=== PATIENT | male | born 1970 | race Caucasian/White ===

== ENCOUNTER 2018-08-23 10:30 | Emergency (ER) | payer MEDICAID, SELFPAY ==
[2018-08-23 10:35] VITALS: BP 131/76; PULSE 69; RESP 18; TEMP 36.3; O2SAT 94
--- NOTE | 2018-08-23 11:12 | ED.GENADUL_ITS ---
Discharge Plan Disposition Patient Disposition: HOME Condition: Stable Discharge Details Chief Complaint: Headache Clinical Impression: Sinusitis, acute Primary Care Provider: Kwabena Chaves ED Provider: Abhay Galvan Home Meds and New Rx's Prescriptions: New amoxicillin-pot clavulanate [Augmentin] 875-125 mg tablet 1 tab PO BID Qty: 14 RF: 0 Continue sertraline 50 MG tablet 50 mg PO DAILY Qty: 90 RF: 3 lisinopril 10 MG tablet 10 mg PO DAILY Qty: 90 RF: 3 valacyclovir 1,000 MG tablet 1,000 mg PO Q12H PRN Qty: 20 RF: 0 omeprazole 20 MG capsule,delayed release(DR/EC) 20 mg PO DAILY Qty: 90 RF: 4 Discharge Instructions Instructions: Sinusitis (ED) Additional Instructions: Feel free to return to the emergency department for any new or significant worsening of symptoms. Otherwise he may continue to take your Claritin-D along with [id number] pain medication as needed for discomfort. If not improving by the end of the antibiotics please follow-up with your primary care provider for reassessment. Referrals: Kwabena Chaves MD [Primary Care Provider] - (As needed for reassessment) Discharge Data Discharge Date/Time-TO BE ENTERED AT DEPARTURE: 08/23/18 11:20 Medical Decision Making Patient presenting to the emergency department with chief complaint of 3 weeks of sinus pressure and headaches. Patient states over the past 2 days he has started having subjective fever and chills at night. Patient does state that he wears a CPAP machine and does not clean it very often and is not sure if this is contributing to his symptoms. Patient has tried Claritin-D with minimal reduction of symptoms. Physical exam does show ethmoid and maxillary sinus tenderness and otherwise unremarkable examination. I am concerned for bacterial sinus infection due to 3 weeks of symptoms, fever chills, and minimal improvement. Patient placed upon Augmentin for 7 days and encouraged to follow- up with his primary care provider if not improving at the end of antibiotics. After discussion of diagnosis and plan of care patient is no further needs, questions, or concerns and states clear understanding to return to the emergency department for any worsening symptoms. HPI General Mode of arrival: ambulatory . Date/Time Provider Initiated Documentation: 08/23/18 10:42 . Limitations to Documentation: no limitations . Information obtained by: patient . History of Present Illness 48 year old M presents to the emergency department with the chief complaint of sinus pressure, described as moderate, with intensity rated at 7. Quality is described as aching, and is localized to the face. Patient started experiencing this week(s) (3) and it has been constant. No relieving factors improve symptom(s), No exacerbating factors reported . Patient did receive the following treatments prior to arrival, NSAID Related Data Home Medications Medication Instructions Recorded Confirmed sertraline 50 mg PO DAILY #90 tab-cap 10/14/17 08/23/18 lisinopril 10 mg PO DAILY #90 tab-cap 03/10/18 08/23/18 valacyclovir 1,000 mg PO Q12H PRN #20 tab-cap 04/06/18 08/23/18 omeprazole 20 mg PO DAILY #90 tab-cap 04/24/18 08/23/18 amoxicillin-pot clavulanate 1 tab PO BID #14 tab 08/23/18 [Augmentin] Previous Rx's Medication Instructions Recorded sertraline 50 mg PO DAILY #90 tab-cap 10/14/17 lisinopril 10 mg PO DAILY #90 tab-cap 03/10/18 valacyclovir 1,000 mg PO Q12H PRN #20 tab-cap 04/06/18 omeprazole 20 mg PO DAILY #90 tab-cap 04/24/18 amoxicillin-pot clavulanate 1 tab PO BID #14 tab 08/23/18 [Augmentin] Allergies Allergy/AdvReac Type Severity Reaction Status Date / Time No Known Allergies Allergy Unverified 01/27/18 09:11 General Stated Complaint: Headache RONALD: 4 Review of Systems Constitutional Denies body ache(s), Denies chills and Denies fever(s) Eyes Denies change in vision and Denies eye discharge ENT Denies otalgia, Reports nasal congestion, Denies neck pain, Reports sinus pain, Reports sinus pressure, Denies sore throat and Denies throat swelling Cardiovascular Denies chest pain and Denies dyspnea Respiratory Denies dyspnea Musculoskeletal Denies neck pain Integumentary/Breasts Denies rash Neurologic Denies confusion and Denies sensory deficit Psychiatric Denies confusion Allergic/Immunologic Denies throat swelling PFSH Family History Mother No problems noted. Father Personal history of malignant neoplasm PATERNAL AUNT Personal history of malignant neoplasm Medical History Anxiety Chewing tobacco use Depression Essential hypertension Family history of colon cancer in father Fatigue GERD (gastroesophageal reflux disease) Gout involving toe of right foot Headache Hiatal hernia History of colon polyps Hyperlipidemia REX (obstructive sleep apnea) Obesity Psoriasis Tick bite Social History Smoking/Tobacco Use Status: Current-Occasional Exam Const General: cooperative, no acute distress and not ill appearing Orientation: alert, awake and oriented x3 HENMT Head: normocephalic and atraumatic Ears: hearing grossly normal bilaterally and TM's normal bilaterally General nose exam: external nose normal, nares normal and septum normal Face and sinus: sinus tenderness ethmoid and maxillary Mouth: oral mucosae normal and moist mucous membranes Throat: posterior oropharynx normal Resp Effort & Inspection: normal respiratory effort, able to speak in complete sentences and no respiratory distress Cardio Rate: regular rate Rhythm: regular rhythm Skin General skin exam: no rashes or lesions noted Neuro General: alert, awake, oriented x3, moves all extremities and no focal motor deficits Sensory Exam: no sensory deficits noted Course Vital Signs Temperature 36.3 C L 08/23/18 10:35 Pulse 69 08/23/18 10:35 Respiratory Rate 18 08/23/18 10:35 Blood Pressure 131/76 08/23/18 10:35 Pulse Oximetry 94 L 08/23/18 10:35 Temperature 36.3 C L 08/23/18 10:35 Temperature Source Temporal Artery Scan 08/23/18 10:35 Pulse 69 08/23/18 10:35 Respiratory Rate 18 08/23/18 10:35 Respiratory Effort 08/23/18 10:37 Blood Pressure 131/76 08/23/18 10:35 Pulse Oximetry 94 L 08/23/18 10:35 Oxygen Delivery Method Room Air 08/23/18 10:35 Oxygen Flow Rate 0 08/23/18 10:35 Pain Level 4 08/23/18 10:35
== END 2018-08-23 11:20 | disposition home or self-care (01) ==
PROVIDERS: Emergency Provider Nurse Practitioner Family; PCP Family Medicine
DX: J01.90 Acute sinusitis, unspecified (principal); I10 Essential (primary) hypertension
CPT/HCPCS: 99283

== ENCOUNTER 2019-02-14 11:39 | Outpatient (CLI) | payer MEDICAID, SELFPAY ==
--- NOTE | 2019-02-14 10:30 | DI.RAD_ITS ---
SYMPTOMS/DIAGNOSIS: BURNING IN CHEST WITH DYSPNEA ON EXERTION, EXPOSURE TO WOOD DUST, BRONCHOSPASM, J98.01, R06.00 PA AND LATERAL CHEST: No evidence of acute cardiopulmonary disease. The heart is normal in size. The lungs are clear. The mediastinal structures and pleura appear intact. CONCLUSION: Normal chest.
== END 2019-02-14 11:59 ==
PROVIDERS: PCP Family Medicine; Visit Provider Family Medicine
DX: J98.01 Acute bronchospasm (principal); R06.00 Dyspnea, unspecified; R07.89 Other chest pain
CPT/HCPCS: 71046

== ENCOUNTER 2019-02-17 15:52 | Emergency (ER) | payer MEDICAID, SELFPAY ==
[2019-02-17 15:59] VITALS: BP 142/83; PULSE 83; RESP 16; TEMP 36.3; O2SAT 94
--- NOTE | 2019-02-17 16:16 | DI.RAD_ITS ---
SYMPTOM/DIAGNOSIS: COUGH,WHEEZE PA AND LATERAL CHEST: Comparison is made with 02/14/19. Heart size and pulmonary vasculature are within normal limits. There is linear atelectasis in the left lung base. No focal consolidating infiltrates, effusions or pneumothoraces are identified. The osseous structures appear stable. IMPRESSION: No acute pulmonary process.
--- NOTE | 2019-02-17 16:17 | W.ED.GENAD ---
Discharge Plan Disposition Patient Disposition: HOME Condition: Improving Discharge Details Chief Complaint: RespSymp Clinical Impression: Acute bronchitis with bronchospasm Primary Care Provider: Kwabena Chaves ED Provider: Luis Alegria Home Meds and New Rx's Prescriptions: New cefdinir 300 mg capsule 300 mg PO Q12H 10 Days Qty: 20 RF: 0 prednisone 50 mg tablet 50 mg PO DAILY Qty: 5 RF: 0 Continued indomethacin 50 mg capsule 50 mg PO TID Qty: 30 RF: 2 fluticasone propionate 50 mcg/actuation spray,suspension 2 spray PJ DAILY Qty: 9.9 RF: 1 Aerochamber MV spacer .ROUTE .MEDSUPPLY Qty: 1 RF: 0 albuterol sulfate [Ventolin HFA] 90 mcg/actuation HFA aerosol inhaler 2 puff IH Q4H PRN (Reason: shortness of breath or wheezing) Qty: 8.5 RF: 2 omeprazole 40 mg capsule,delayed release(DR/EC) 40 mg PO BID Qty: 60 RF: 0 lisinopril 10 MG tablet 10 mg PO DAILY Qty: 90 RF: 3 sertraline 50 mg tablet 50 mg PO DAILY Qty: 90 RF: 3 Discharge Instructions Instructions: Acute Bronchitis (ED) Additional Instructions: Stop the amoxicillin you have been taking. Begin antibiotics as prescribed and take the entire course. Take prednisone as prescribed. May continue to use your inhaler as needed every 2-4 hours time. Please make a follow-up appointment with Dr Pereira in clinic for recheck in the next 7-10 days time. Return to the emergency department for worsening difficulty breathing or any other acute concern. Medical Decision Making 48-year-old male presents emerged from today from home with his . He states that he has had intermittent upper respiratory illnesses 3 times this winter. Now is days of her recurrent cough with congestion, production of sputum, wheezing at home this morning. He arrives afebrile, well-appearing, in no acute distress with normal oxygenation on room air and speaking in full sentences. His exam does reveal right base and expiratory wheeze. Differential diagnosis includes bronchitis with bronchospasm, pneumonia. Screening laboratories obtained, patient given a DuoNeb updraft and systemic steroids, referred for chest x-ray. Screening laboratories unremarkable. Chest x-ray with platelike atelectasis left base. Patient improving with inhaled beta agonist. Will treat for worsening bronchitis, with question sinusitis, with a course of oral abx. Patient will benefit from steroid burst and ongoing beta agonist treatment for bronchospasm. Will ask him to followup with Dr Pereira for recheck. Lab Data Lab results reviewed: Yes I reviewed the patient's lab results. Laboratory Results - last 24 hr 02/17/19 02/17/19 16:20 16:20 WBC 5.83 RBC 4.72 Hgb 14.6 Hct 43.6 MCV 92.4 MCH 30.9 MCHC 33.5 RDW 13.2 Plt Count 246 MPV 8.3 Immature Gran % 0.3 Neutrophils % 39.1 Lymphocytes % 38.8 Monocytes % 15.8 Eosinophils % 5.7 Basophils % 0.3 Absolute Neutrophils 2.28 Absolute Lymphocytes 2.26 Absolute Monocytes 0.92 H Absolute Eosinophils 0.33 Absolute Basophils 0.02 Sodium 139 Potassium 4.4 Chloride 103 Carbon Dioxide 26.8 Anion Gap 9.2 BUN 17 Creatinine 0.98 Estimated GFR/1.73 m2 >= 60.00 Glucose 93 Calcium 9.0 HPI General Mode of arrival: ambulatory. Date/Time Provider Initiated Documentation: 02/17/19 15:58. Limitations to Documentation: no limitations. Information obtained by: patient. History of Present Illness 48 year old M presents to the emergency department with the chief complaint of Cough and congestion, recurrent with wheezing this am, described as moderate, Quality is described as dull and constant, and is localized to the chest. Patient reports no radiation. Patient started experiencing this day(s) and it has been constant. No relieving factors improve symptom(s), No exacerbating factors reported . Patient notes cough, fever/chills and other (Production of sputum, green colored and wheezing this AM). Patient did receive the following treatments prior to arrival, other (States he has been taking amoxicillin 500 mg twice daily for 3 DAYS) Related Data Home Medications Medication Instructions Recorded Confirmed lisinopril 10 mg PO DAILY #90 tab-cap 03/10/18 02/17/19 indomethacin 50 mg capsule 50 mg PO TID #30 cap 10/13/18 02/17/19 sertraline 50 mg tablet 50 mg PO DAILY #90 tab-cap 11/13/18 02/17/19 fluticasone propionate 50 2 spray PJ DAILY #9.9 gm 01/26/19 02/17/19 mcg/actuation nasal spray,suspension albuterol sulfate HFA 90 2 puff IH Q4H PRN #8.5 gm 02/14/19 02/17/19 mcg/actuation aerosol inhaler inhalational spacing device #1 each 02/14/19 02/14/19 omeprazole 40 mg capsule,delayed 40 mg PO BID #60 cap 02/14/19 02/17/19 release cefdinir 300 mg PO Q12H 10 Days #20 cap 02/17/19 prednisone 50 mg PO DAILY #5 tab 02/17/19 Previous Rx's Medication Instructions Recorded lisinopril 10 mg PO DAILY #90 tab-cap 03/10/18 indomethacin 50 mg capsule 50 mg PO TID #30 cap 10/13/18 sertraline 50 mg tablet 50 mg PO DAILY #90 tab-cap 11/13/18 fluticasone propionate 50 2 spray PJ DAILY #9.9 gm 01/26/19 mcg/actuation nasal spray,suspension albuterol sulfate HFA 90 2 puff IH Q4H PRN #8.5 gm 02/14/19 mcg/actuation aerosol inhaler inhalational spacing device #1 each 02/14/19 omeprazole 40 mg capsule,delayed 40 mg PO BID #60 cap 02/14/19 release cefdinir 300 mg PO Q12H 10 Days #20 cap 02/17/19 prednisone 50 mg PO DAILY #5 tab 02/17/19 Allergies Allergy/AdvReac Type Severity Reaction Status Date / Time No Known Allergies Allergy Unverified 02/17/19 16:04 General Stated Complaint: RespSymp RONLAD: 3 Review of Systems Review of Systems 6 systems reviewed and otherwise negative. Patient denies chest pain, no recent travel, no known sick CONTACTS [facility] Medical History Anxiety Chewing tobacco use Depression Essential hypertension Family history of colon cancer in father Fatigue GERD (gastroesophageal reflux disease) Gout involving toe of right foot Headache Hiatal hernia History of colon polyps Hyperlipidemia REX (obstructive sleep apnea) Obesity Psoriasis Tick bite Family History Mother No problems noted. Father Personal history of malignant neoplasm PATERNAL AUNT Personal history of malignant neoplasm Social History Smoking/Tobacco Use Status: Never Drug use: Never Do you feel safe in your relationship?: Yes Exam Narrative Exam Narrative: GEN: awake, alert, oriented 3. Pleasant, well groomed, interactive. HEAD: Normocephalic, atraumatic ENT: Mucous membranes moist, oropharynx unremarkable, External ear exam unremarkable EYES: PERRL, EOMI NECK: Full ROM, no VALERIA, no menigismus CHEST/RESP: Nontender, clear to auscultation bilateral, discrete end expiratory wheeze at right base CARDIOVASCULAR: RRR, no murmur, rub marj. 2+ Rad pulse bilateral ABDOMEN: Soft, nontender, no mass. +Bowel sounds EXT: Full ROM, no edema, no rash Neuro: Grossly normal neurologic exam, conversant, interactive. Psych: Speech fluent, thoughts congruent, affect normal Course Vital Signs Temperature 36.3 C L 02/17/19 15:59 Pulse 83 02/17/19 15:59 Respiratory Rate 16 02/17/19 15:59 Blood Pressure 142/83 H 02/17/19 15:59 Pulse Oximetry 94 L 02/17/19 15:59 Temperature 36.3 C L 02/17/19 15:59 Temperature Source Skin 02/17/19 15:59 Pulse 83 02/17/19 15:59 Respiratory Rate 16 02/17/19 15:59 Respiratory Effort Non-Labored 02/17/19 16:06 Respiratory Depth Normal 02/17/19 16:06 Blood Pressure 142/83 H 02/17/19 15:59 Blood Pressure Position Sitting 02/17/19 15:59 Pulse Oximetry 94 L 02/17/19 15:59 Oxygen Delivery Method Room Air 02/17/19 15:59 Oxygen Flow Rate 0 02/17/19 15:59 Pain Level 5 02/17/19 15:59
[2019-02-17 16:26] VITALS: RESP 2; RESP 7; O2SAT 94
[2019-02-17] MEDS: Albuterol/Ipratropium 3 ML UPD VIAL UPD (16:26)
[2019-02-17] MEDS: predniSONE 20 MG TAB 60 MG PO (16:26)
[2019-02-17 16:29] LABS: Abs Immature Grans 0.02 k/cumm (0.0-0.09); Absolute Basophil Count 0.02 k/cumm (0.0-0.2); Absolute Eosinophil Count 0.33 k/cumm (0.0-0.7); Absolute Lymphocyte Count 2.26 k/cumm (1.2-3.4); Absolute Monocyte Count 0.92 k/cumm (0.11-0.7); Absolute Neutrophil Count 2.28 k/cumm (1.2-6.7); Basophils % 0.3; Eosinophils % 5.7; HCT 43.6 % (40.0-50.0); HGB 14.6 g/dL (13.5-17.5); Immature Grans % 0.3; Lymphocytes % 38.8; Mean Corp. HGB Concentration 33.5 g/dL (32.0-36.0); Mean Corpuscular Hemoglobin 30.9 pg (27.0-33.0); Mean Corpuscular Volume 92.4 fL (80-95); Mean Platelet Volume 8.3 fL (8.0-11.0); Monocytes % 15.8; Neutrophils % 39.1; Platelet Count 246 x1000/uL (130-400); RBC 4.72 m/cumm (4.50-6.00); RBC Distribution Width 13.2 % (11.8-14.1); White Blood Cell Count 5.83 k/cumm (4.4-10.8)
[2019-02-17 16:40] LABS: Anion Gap 9.2 mmol/L (3-11); BUN 17 mg/dL (7-18); CO2 26.8 mmol/L (21.0-32.0); CREATININE 0.98 mg/dL (0.70-1.30); Chloride 103 mmol/L (98-107); Glucose 93 mg/dL (70-100); Potassium 4.4 mmol/L (3.5-5.1); Sodium 139 mmol/L (136-145)
[2019-02-17 16:56] VITALS: RESP 1
--- NOTE | 2019-02-17 17:02 | DI.VRAD_ITS ---
EXAM: XR Chest, 2 Views EXAM DATE/TIME: 02/17/2019 4:17 PM CLINICAL HISTORY: 48 years old, male; Signs and symptoms; Other: Cough and wheeze TECHNIQUE: Imaging protocol: XR of the chest, 2 views. COMPARISON: CR XR CHEST 2V PA LATERAL 02/14/2019 10:55 AM FINDINGS: Lungs: Mild platelike atelectasis in the left lung base. Lungs are otherwise clear. Pleural space: Unremarkable. No pleural effusion. No pneumothorax. Heart/Mediastinum: Unremarkable. No cardiomegaly. Bones/joints: No acute skeletal abnormality. IMPRESSION: Negative for acute thoracic pathology. Dictated and Authenticated by: Mariusz Mcmanus MD. Ordering:EL Smith MD
[2019-02-17] MEDS: Cefdinir 300 MG CAP PO (17:20)
== END 2019-02-17 17:22 | disposition home or self-care (01) ==
PROVIDERS: Emergency Provider Emergency Medicine; PCP Family Medicine
DX: J20.9 Acute bronchitis, unspecified (principal); I10 Essential (primary) hypertension
CPT/HCPCS: 36415; 80048; 94640; 99284; 71046; 85025; J7512; J7620

== ENCOUNTER 2019-02-18 21:51 | Emergency (ER) | payer MEDICAID, SELFPAY ==
[2019-02-18 21:59] VITALS: BP 167/75; PULSE 89; RESP 18; TEMP 36.9; O2SAT 92
[2019-02-18 22:06] VITALS: RESP 18
--- NOTE | 2019-02-18 22:07 | W.ED.GENAD ---
Discharge Plan Disposition Patient Disposition: HOME Condition: Good Discharge Details Chief Complaint: GenMedical Clinical Impression: Adverse effects of medication Primary Care Provider: Kwabena Chaves ED Provider: Jose Rivera Home Meds and New Rx's Prescriptions: No Action indomethacin 50 mg capsule 50 mg PO TID Qty: 30 RF: 2 fluticasone propionate 50 mcg/actuation spray,suspension 2 spray PJ DAILY Qty: 9.9 RF: 1 Aerochamber MV spacer .ROUTE .MEDSUPPLY Qty: 1 RF: 0 albuterol sulfate [Ventolin HFA] 90 mcg/actuation HFA aerosol inhaler 2 puff IH Q4H PRN (Reason: shortness of breath or wheezing) Qty: 8.5 RF: 2 omeprazole 40 mg capsule,delayed release(DR/EC) 40 mg PO BID Qty: 60 RF: 0 lisinopril 10 MG tablet 10 mg PO DAILY Qty: 90 RF: 3 sertraline 50 mg tablet 50 mg PO DAILY Qty: 90 RF: 3 cefdinir 300 mg capsule 300 mg PO Q12H 10 Days Qty: 20 RF: 0 prednisone 50 mg tablet 50 mg PO DAILY Qty: 5 RF: 0 Discharge Instructions Additional Instructions: Please either stop taking the steroid completely, or cut the pills in half and take a half a pill daily for the next 7 days. Please take the antibiotic as directed. If you notice any worsening of your symptoms, or any new symptoms such as vomiting, diarrhea, fever, chills, shortness of breath, chest pain, numbness, weakness, or fainting , please return immediately to the emergency department for reevaluation. Please follow up with your primary care provider as soon as possible for reassessment and reevaluation. As always, it was a pleasure participating in your medical care today. Referrals: Kwabena Chaves MD [Primary Care Provider] - Medical Decision Making This is a 48-year-old male who presents today for evaluation of flushing in his face, occasional palpitations, feeling slightly hot and anxious. Patient was given an antibiotic and prednisone yesterday when he was here, he is taking his second dose of steroids today. Physical exam demonstrates no evidence of angioedema, allergic reaction with no signs of rash, hives, or swelling. No significant flushing of his face, vital signs are notably encouraging. I do feel that the patient signs and symptoms are clinically consistent with an adverse reaction secondary to the steroid with a classic flushing, mild palpitation, feelings of anxiousness. No signs of anaphylaxis, no evidence of abnormality for the remainder of his exam. Currently he feels asymptomatic. I discussed with him stopping the steroid, versus continuing it at half dose. I will leave it up to him based on his symptoms. He will continue the antibiotic. Otherwise patient is doing well and looks well. I have extensively reviewed the treatment plan and discharge instructions with the patient. I have addressed all patient concerns at this time. The patient was made aware of what symptoms to monitor for that would warrant a return to the emergency department. Discussed the plan with the patient, they demonstrate verbal understanding and agreement with our assessment and plan at this time. HPI General Date/Time Provider Initiated Documentation: 02/18/19 21:52. HPI Narrative: This is a pleasant 48-year-old male with a past medical history of reactive airway disease who was recently here yesterday and prescribed steroids and Ceftin ear for suspected community-acquired URI/pneumonia. Patient had been taking medication as directed, however today he noticed flushing in his face, feelings of jitteriness and occasional palpitations. He states that he is taking these medications before but has not had symptoms like this in the past. Patient denies any chest pain, shortness of breath, tearing sensation in his chest, swelling in his mouth, difficulty drinking, syncope, or lightheadedness. No other complaints at this time. No other additional modifying factors. Related Data Home Medications Medication Instructions Recorded Confirmed lisinopril 10 mg PO DAILY #90 tab-cap 03/10/18 02/17/19 indomethacin 50 mg capsule 50 mg PO TID #30 cap 10/13/18 02/17/19 sertraline 50 mg tablet 50 mg PO DAILY #90 tab-cap 11/13/18 02/17/19 fluticasone propionate 50 2 spray PJ DAILY #9.9 gm 01/26/19 02/17/19 mcg/actuation nasal spray,suspension albuterol sulfate HFA 90 2 puff IH Q4H PRN #8.5 gm 02/14/19 02/17/19 mcg/actuation aerosol inhaler inhalational spacing device #1 each 02/14/19 02/14/19 omeprazole 40 mg capsule,delayed 40 mg PO BID #60 cap 02/14/19 02/17/19 release cefdinir 300 mg PO Q12H 10 Days #20 cap 02/17/19 02/18/19 prednisone 50 mg PO DAILY #5 tab 02/17/19 02/18/19 Previous Rx's Medication Instructions Recorded lisinopril 10 mg PO DAILY #90 tab-cap 03/10/18 indomethacin 50 mg capsule 50 mg PO TID #30 cap 10/13/18 sertraline 50 mg tablet 50 mg PO DAILY #90 tab-cap 11/13/18 fluticasone propionate 50 2 spray PJ DAILY #9.9 gm 01/26/19 mcg/actuation nasal spray,suspension albuterol sulfate HFA 90 2 puff IH Q4H PRN #8.5 gm 02/14/19 mcg/actuation aerosol inhaler inhalational spacing device #1 each 02/14/19 omeprazole 40 mg capsule,delayed 40 mg PO BID #60 cap 02/14/19 release cefdinir 300 mg PO Q12H 10 Days #20 cap 02/17/19 prednisone 50 mg PO DAILY #5 tab 02/17/19 Allergies Allergy/AdvReac Type Severity Reaction Status Date / Time No Known Allergies Allergy Unverified 02/18/19 22:04 General Stated Complaint: GenMedical RONALD: 4 Review of Systems Review of Systems All systems reviewed & are unremarkable except as noted in HPI and below PFSH Social History Smoking/Tobacco Use Status: Never Drug use: Never Do you feel safe in your relationship?: Yes Exam Narrative Exam Narrative: 1.Const: Well-nourished, Well-developed, appearing stated age 2.Eyes: PERRL, no conjunctival injection, and symmetrical lids. 3.ENT: Atraumatic external nose and ears. Moist MM. Neck: Symmetric, trachea midline, No thyromegaly. 4.CVS: +S1/S2, No murmurs or gallops. Peripheral pulses 2+ and equal in all extremities. Brisk capillary refill in all extremities. 5.RESP: Unlabored respiratory effort. No wheezes throughout, no significant crackles or rhonchi. 6.GI: Soft, Nontender/Nondistended, No hepatosplenomegaly. No guarding or rebound. 7.MSK: Normocephalic/Atraumatic, Extremities w/o deformity or ttp No cyanosis or clubbing, Normal movement of all extremities 8.Skin: Warm, Dry. No rashes or lesions. 9.Neuro: manager credit collections II-XII grossly intact. Sensation grossly intact, no focal neurologic deficits. 10.Psych: (AAO) x3. Appropriate mood and affect Course Vital Signs Temperature 36.9 C 02/18/19 21:59 Pulse 89 02/18/19 21:59 Respiratory Rate 18 02/18/19 21:59 Blood Pressure 167/75 H 02/18/19 21:59 Pulse Oximetry 92 L 02/18/19 21:59 Temperature 36.9 C 02/18/19 21:59 Temperature Source Skin 02/18/19 21:59 Pulse 89 02/18/19 21:59 Respiratory Rate 18 02/18/19 21:59 Blood Pressure 167/75 H 02/18/19 21:59 Blood Pressure Position Sitting 02/18/19 21:59 Pulse Oximetry 92 L 02/18/19 21:59 Oxygen Delivery Method Room Air 02/18/19 21:59 Oxygen Flow Rate 0 02/18/19 21:59
== END 2019-02-18 22:13 | disposition home or self-care (01) ==
PROVIDERS: Emergency Provider Student in an Organized Health Care Education/Training Program; PCP Family Medicine
DX: T38.0X5A Adverse effect of glucocorticoids and synthetic analogues, initial encounter (principal)
CPT/HCPCS: 99283

== ENCOUNTER 2019-06-01 13:55 | Emergency (ER) | payer MEDICAID, SELFPAY ==
[2019-06-01 14:01] VITALS: BP 117/63; PULSE 86; RESP 16; TEMP 36.9; O2SAT 95
--- NOTE | 2019-06-01 14:24 | ED.GENADUL_ITS ---
Discharge Plan Disposition Patient Disposition: HOME Condition: Stable Discharge Details Chief Complaint: Sorethroat Clinical Impression: Sore throat Primary Care Provider: Kwabena Chaves ED Provider: Nghia Cortez Home Meds and New Rx's Prescriptions: No Action fluticasone propionate 50 mcg/actuation spray,suspension 2 spray PJ DAILY Qty: 9.9 RF: 1 (DME) Aerochamber MV spacer See Dose Instructions .ROUTE .MEDSUPPLY Qty: 1 RF: 0 albuterol sulfate [Ventolin HFA] 90 mcg/actuation HFA aerosol inhaler 2 puff IH Q4H PRN (Reason: shortness of breath or wheezing) Qty: 8.5 RF: 2 omeprazole 40 mg capsule,delayed release(DR/EC) 20 mg PO BID Qty: 60 RF: 0 sertraline 50 mg tablet 50 mg PO DAILY Qty: 90 RF: 3 lisinopril 10 mg tablet 10 mg PO DAILY Qty: 90 RF: 3 Discharge Instructions Additional Instructions: Your seen feeling of sore throat today with concern for swelling of your uvula. On exam today there is no evidence of infection swelling or airway obstruction. However the symptoms have been improving over the past week raising some concern for resolving angioedema which is a swelling of your airway tissues secondary to your lisinopril. I Recommend that you stop taking your lisinopril & follow-up with your primary care doctor in the next 3 days for consideration of an alternative blood pressure medication. Please return to the emergency departme nt immediately for difficulty swallowing difficulty breathing swelling of your lips tongue or other part of your upper airway. Referrals: Kwabena Chaves MD [Primary Care Provider] - (Please see your primary care provider for repeat exam and consideration of an alternative blood pressure medication.) Medical Decision Making 49-year-old male with sensation of enlarged uvula when swallowing difficulty swallowing no inability to tolerate p.o. no shortness of breath no voice change no signs of airway edema or respiratory compromise. Due to the delayed presentation some consideration for resolving angioedema. Will have patient discontinue lisinopril discussed strict return to emergency department precautions including shortness of breath change in voice stridor facial swelling tongue swelling or other airway concern. Patient to follow-up with primary care doctor for consideration of alternate blood pressure medication and follow with ENT if symptoms are not resolving completely patient also counseled to tobacco use is dangerous and he should consider cessation patient not interested in cessation today. HPI 49-year-old male past medical history of hypertension GERD and depression presents with 1 week of gradually improving sore throat characterized as a swelling around his uvula on his own personal exam and some discomfort with swallowing. No fever chills shortness of breath chest pain loss of consciousness change in voice or change in breathing pattern no reported difficulty sleeping or snoring. Symptoms occurred a week ago gradually were worse with swallowing and is slowly been resolving. General Date/Time Provider Initiated Documentation: 06/01/19 14:10 . Related Data Home Medications Medication Instructions Recorded Confirmed sertraline 50 mg tablet 50 mg PO DAILY #90 tab-cap 11/13/18 06/01/19 fluticasone propionate 50 2 spray PJ DAILY #9.9 gm 01/26/19 06/01/19 mcg/actuation nasal spray,suspension albuterol sulfate 90 mcg/actuation 2 puff IH Q4H PRN #8.5 gm 02/14/19 06/01/19 aerosol inhaler inhalational spacing device #1 each 02/14/19 06/01/19 omeprazole 40 mg capsule,delayed 20 mg PO BID #60 cap 02/14/19 06/01/19 release lisinopril 10 mg tablet 10 mg PO DAILY #90 tab-cap 04/10/19 06/01/19 Previous Rx's Medication Instructions Recorded sertraline 50 mg tablet 50 mg PO DAILY #90 tab-cap 11/13/18 fluticasone propionate 50 2 spray PJ DAILY #9.9 gm 01/26/19 mcg/actuation nasal spray,suspension albuterol sulfate 90 mcg/actuation 2 puff IH Q4H PRN #8.5 gm 02/14/19 aerosol inhaler inhalational spacing device #1 each 02/14/19 omeprazole 40 mg capsule,delayed 20 mg PO BID #60 cap 02/14/19 release lisinopril 10 mg tablet 10 mg PO DAILY #90 tab-cap 04/10/19 Allergies Allergy/AdvReac Type Severity Reaction Status Date / Time No Known Allergies Allergy Unverified 06/01/19 14:05 General Stated Complaint: Sorethroat RONALD: 4 Review of Systems Review of Systems All systems reviewed & are unremarkable except as noted in HPI and below PFSH Social History Smoking/Tobacco Use Status: Never Drug use: Never Do you feel safe at home: Yes Do you feel safe in your relationship?: Yes Exam Narrative Exam Narrative: Pulse oximetry reviewed by me and is normal Constitutional: he is in no acute distress. he is well appearing. he oriented to person, place, and time. Eyes: his conjunctivae are normal. Pupils are equal, round, and reactive to light. No scleral icterus. his extraocular muscles are intact pharynx normal nomral uvula, no erthema no exudates no asymmetry. no stridor. no tachypnea or resp distress. normal voice. no foul breath. no lesions or sores. Ears/Nose/Mouth/Throat: his mucus membranes are moist. Musculoskeletal: his neck is supple. he has normal range of motion in all extremities. Cardiovascular: Normal rate and rhythm. No lower extremity edema Respiratory: his effort is normal . he exhibits no stridor or respiratory distress. LCTA GastrointestinaI: abdomen soft, +BS, nontender, -rebound, -guarding. Neurological: he is alert and oriented to person, place, and time. he has normal strength, no tremor. Skin: Skin is warm and dry. he is not diaphoretic. Distal perfusion in tact, warm extremities, cap refill < 2 seconds. Hem/Lymph/Imm: No cervical LAD, no goiter, no conjunctival pallor Psych: he has a normal mood and affect. his behavior is normal Triage and nurse notes reviewed. Course Vital Signs Temperature 36.9 C 06/01/19 14:01 Pulse 86 06/01/19 14:01 Respiratory Rate 16 06/01/19 14:01 Blood Pressure 117/63 06/01/19 14:01 Pulse Oximetry 95 06/01/19 14:01 Temperature 36.9 C 06/01/19 14:01 Temperature Source Skin 06/01/19 14:01 Pulse 86 06/01/19 14:01 Respiratory Rate 16 06/01/19 14:01 Respiratory Effort Non-Labored 06/01/19 14:03 Blood Pressure 117/63 06/01/19 14:01 Blood Pressure Position Sitting 06/01/19 14:01 Pulse Oximetry 95 06/01/19 14:01 Oxygen Delivery Method Room Air 06/01/19 14:01 Oxygen Flow Rate 0 06/01/19 14:01 Pain Level 0 06/01/19 14:01
== END 2019-06-01 14:32 | disposition home or self-care (01) ==
PROVIDERS: Emergency Provider Emergency Medicine; PCP Family Medicine
DX: J02.9 Acute pharyngitis, unspecified (principal); I10 Essential (primary) hypertension
CPT/HCPCS: 99282

== ENCOUNTER 2019-06-07 21:35 | Emergency (ER) | payer MEDICAID, SELFPAY ==
[2019-06-07 21:40] VITALS: BP 131/78; PULSE 70; RESP 20; TEMP 36.6; O2SAT 96
[2019-06-07] MEDS: Tetracaine 0.5% 4 ML BTL (21:46)
--- NOTE | 2019-06-07 21:52 | ED.GENADUL_ITS ---
Discharge Plan Disposition Patient Disposition: HOME Condition: Good Discharge Details Chief Complaint: EyeProblem Clinical Impression: Abrasion, corneal, Eye foreign body Primary Care Provider: Kwabena Chaves ED Provider: Haydee Kingston Home Meds and New Rx's Prescriptions: Continued fluticasone propionate 50 mcg/actuation spray,suspension 2 spray PJ DAILY Qty: 9.9 RF: 1 (DME) Aerochamber MV spacer See Dose Instructions .ROUTE .MEDSUPPLY Qty: 1 RF: 0 albuterol sulfate [Ventolin HFA] 90 mcg/actuation HFA aerosol inhaler 2 puff IH Q4H PRN (Reason: shortness of breath or wheezing) Qty: 8.5 RF: 2 omeprazole 40 mg capsule,delayed release(DR/EC) 20 mg PO BID Qty: 60 RF: 0 sertraline 50 mg tablet 50 mg PO DAILY Qty: 90 RF: 3 lisinopril 10 mg tablet 10 mg PO DAILY Qty: 90 RF: 3 Discharge Instructions Instructions: Corneal Abrasion (ED), Eye Foreign Body (ED) Additional Instructions: Foreign body was removed today. You need to treat with erythromycin ointment every 6 hours for the next 5 days. Please call [facility] tomorrow to schedule follow up appointment. If you develop fevers/chills, increased pain, discharge, visual changes or other new/worsening symptoms please seek care urgently once again. Referrals: Kwabena Cahves MD [Primary Care Provider] - Medical Decision Making Patient is a 49 year old male with c/c of FB to left eye. Reports he is UTD on tetanus. Was working with wood, patient is a shabazz, when developed FB sensation. States vision has been slightly blurry. No CHANG, no fevers/chills. On exam cornea is injected, no discharge. Eyelids were everted, no FB noted. Tetracaine improved symptoms. Flouroscein used, small abrasion noted at 3 o'clock position. Small FB noted in upper lid, removed with qtip. Patient will be treated with erythromycin ointment. This was given here, first dose adminstered by nursing staff. He will f/u with [facility] tomorrow. Discussed new/worsneing symptoms that should prompt her to be evaluated once again. all questions and concerns were addressed, he is in agreement iwth this plan. HPI General Mode of arrival: ambulatory . Date/Time Provider Initiated Documentation: 06/07/19 21:52 . Limitations to Documentation: no limitations . Information obtained by: patient and RN notes reviewed . History of Present Illness 49 year old M presents to the emergency department with the chief complaint of FB sensation left eye, described as moderate, Quality is described as burning (scratching), and is localized to the eyes. Patient reports no radiation. Patient started experiencing this hour(s) (10) and it has been constant. No relieving factors improve symptom(s), No exacerbating factors reported . Patient notes no other symptoms.; denies diaphoresis, fever/chills, headaches, nausea/vomiting and rash. Patient did receive the following treatments prior to arrival, none Related Data Home Medications Medication Instructions Recorded Confirmed sertraline 50 mg tablet 50 mg PO DAILY #90 tab-cap 11/13/18 06/01/19 fluticasone propionate 50 2 spray PJ DAILY #9.9 gm 01/26/19 06/01/19 mcg/actuation nasal spray,suspension albuterol sulfate 90 mcg/actuation 2 puff IH Q4H PRN #8.5 gm 02/14/19 06/01/19 aerosol inhaler inhalational spacing device #1 each 02/14/19 06/01/19 omeprazole 40 mg capsule,delayed 20 mg PO BID #60 cap 02/14/19 06/01/19 release lisinopril 10 mg tablet 10 mg PO DAILY #90 tab-cap 04/10/19 06/01/19 Previous Rx's Medication Instructions Recorded sertraline 50 mg tablet 50 mg PO DAILY #90 tab-cap 11/13/18 fluticasone propionate 50 2 spray PJ DAILY #9.9 gm 01/26/19 mcg/actuation nasal spray,suspension albuterol sulfate 90 mcg/actuation 2 puff IH Q4H PRN #8.5 gm 02/14/19 aerosol inhaler inhalational spacing device #1 each 02/14/19 omeprazole 40 mg capsule,delayed 20 mg PO BID #60 cap 02/14/19 release lisinopril 10 mg tablet 10 mg PO DAILY #90 tab-cap 04/10/19 Allergies Allergy/AdvReac Type Severity Reaction Status Date / Time No Known Allergies Allergy Unverified 06/01/19 14:05 General Stated Complaint: EyeProblem RONALD: 3 Review of Systems Constitutional Reports as per HPI, Denies chills, Denies fatigue, Denies fever(s) and Denies headache(s) Eyes Reports as per HPI ENT Denies headache(s) Cardiovascular Reports as per HPI, Denies chest pain and Denies lightheadedness Respiratory Denies cough Integumentary/Breasts Reports as per HPI, Denies rash, Denies skin pain and Denies skin swelling Neurologic Denies headache(s) and Denies radicular pain Endocrine Denies fatigue [facility] Medical History Anxiety Chewing tobacco use Depression Essential hypertension Family history of colon cancer in father Fatigue GERD (gastroesophageal reflux disease) Gout involving toe of right foot Headache Hiatal hernia History of colon polyps Hyperlipidemia Obesity REX (obstructive sleep apnea) Psoriasis Tick bite Social History Smoking/Tobacco Use Status: Never Alcohol Intake: never Drug use: Never Substance use type: does not use Do you feel safe at home: Yes Do you feel safe in your relationship?: Yes Exam Const General: cooperative, healthy appearing, comfortable, no acute distress, well developed and well groomed Nutritional Appearance: average body habitus and well nourished Orientation: alert, awake and oriented x3 HENMT Head: normal to inspection, normocephalic and atraumatic Ears: hearing grossly normal bilaterally and external ears normal General nose exam: external nose normal and nares normal Face and sinus: normal facial exam and face symmetric Mouth: oral mucosae normal, lip normal and moist mucous membranes Eyes Visual Fink: normal visual fink by confrontation Alignment and Position: alignment normal and position normal Periorbital: periorbital findings normal Eyelids: eyelid abnormality left upper eyelid foreign body (small FB noted with flouroscein uptake); without lacerations and without swelling Conjunctivae: conjunctivae normal Sclera: sclerae normal Cornea: corneas abnormal on the left fluorescein used and abrasion linear and at the following clock position (3) and fluorescein used Pupils: PERRL, normal by confrontation and accommodation normal EOM: EOM intact bilaterally Direct ophthalmoscopy: normal light reflex Resp Effort & Inspection: normal respiratory effort, able to speak in complete sentences and no respiratory distress Skin General skin exam: no rashes or lesions noted Neuro General: alert, awake and oriented x3 Cranial Nerves: CN's II-XI intact bilaterally Cognition: normal cognition Speech: speech normal Gait: normal gait Psych Appearance: grossly normal and well kempt Mental Status: mental status grossly normal Speech and Movement: speech and movement normal Course Vital Signs Temperature 36.6 C 06/07/19 21:40 Pulse 70 06/07/19 21:40 Respiratory Rate 20 06/07/19 21:40 Blood Pressure 131/78 06/07/19 21:40 Pulse Oximetry 96 06/07/19 21:40 Temperature 36.6 C 06/07/19 21:40 Temperature Source Temporal Artery Scan 06/07/19 21:40 Pulse 70 06/07/19 21:40 Respiratory Rate 20 06/07/19 21:40 Respiratory Effort 06/07/19 21:46 Blood Pressure 131/78 06/07/19 21:40 Blood Pressure Position Sitting 06/07/19 21:40 Pulse Oximetry 96 06/07/19 21:40 Oxygen Delivery Method Room Air 06/07/19 21:40 Oxygen Flow Rate 0 06/07/19 21:40
[2019-06-07] MEDS: Erythromycin Ophth Oint 3.5 GM TUBE OS (22:44)
[2019-06-07] MEDS: Fluorescein STRIPS 100/BOX 1 MG (22:46)
== END 2019-06-07 22:50 | disposition home or self-care (01) ==
PROVIDERS: Emergency Provider Physician Assistant; PCP Family Medicine
DX: S05.02XA Injury of conjunctiva and corneal abrasion without foreign body, left eye, initial encounter (principal); S00.252A Superficial foreign body of left eyelid and periocular area, initial encounter; X58.XXXA Exposure to other specified factors, initial encounter
CPT/HCPCS: 99283

== ENCOUNTER 2019-06-08 08:29 | Outpatient (CLI) | payer MEDICAID, SELFPAY ==
[2019-06-08 11:02] LABS: Abs Immature Grans 0.02 k/cumm (0.0-0.09); Absolute Basophil Count 0.02 k/cumm (0.0-0.2); Absolute Eosinophil Count 0.21 k/cumm (0.0-0.7); Absolute Lymphocyte Count 2.37 k/cumm (1.2-3.4); Absolute Monocyte Count 0.63 k/cumm (0.11-0.7); Absolute Neutrophil Count 3.26 k/cumm (1.2-6.7); Basophils % 0.3; Eosinophils % 3.2; HCT 41.3 % (40.0-50.0); HGB 13.7 g/dL (13.5-17.5); Immature Grans % 0.3; Lymphocytes % 36.4; Mean Corp. HGB Concentration 33.2 g/dL (32.0-36.0); Mean Corpuscular Hemoglobin 31.6 pg (27.0-33.0); Mean Corpuscular Volume 95.4 fL (80-95); Mean Platelet Volume 8.7 fL (8.0-11.0); Monocytes % 9.7; Neutrophils % 50.1; Platelet Count 294 x1000/uL (130-400); RBC 4.33 m/cumm (4.50-6.00); White Blood Cell Count 6.51 k/cumm (4.4-10.8)
[2019-06-08 11:27] LABS: ALT 79 U/L (12-78); AST 34 U/L (15-37); Albumin 3.5 g/dL (3.4-5.0); Alkaline Phosphatase 92 U/L (46-116); Anion Gap 9.2 mmol/L (3-11); BUN 19 mg/dL (7-18); Bilirubin, Total 0.3 mg/dL (0.2-1.0); CO2 25.8 mmol/L (21.0-32.0); CREATININE 0.88 mg/dL (0.70-1.30); Calcium 8.6 mg/dL (8.5-10.1); Calculated LDL 119 mg/dL; Chloride 107 mmol/L (98-107); Cholesterol 189 mg/dL (50-200); Glucose 85 mg/dL (70-100); HDL Cholesterol 38 mg/dL (40-60); Potassium 4.6 mmol/L (3.5-5.1); Sodium 142 mmol/L (136-145); Total Protein 6.4 g/dL (6.4-8.2); Triglyceride 160 mg/dL (30-150)
[2019-06-08 11:34] LABS: TSH 1.93 uIU/mL (0.36-3.74)
[2019-06-11 12:28] LABS: Vitamin D 25 Total 27.3 ng/ml (30-100)
== END 2019-06-08 08:49 ==
PROVIDERS: Family Medicine; PCP Family Medicine; Visit Provider Family Medicine
DX: E78.5 Hyperlipidemia, unspecified (principal); R79.89 Other specified abnormal findings of blood chemistry; R53.83 Other fatigue; E89.0 Postprocedural hypothyroidism; I10 Essential (primary) hypertension; K21.9 Gastro-esophageal reflux disease without esophagitis; R06.00 Dyspnea, unspecified; J98.01 Acute bronchospasm
CPT/HCPCS: 36415; 80053; 80061; 82306; 83721; 85027; 84443; 85025

== ENCOUNTER 2019-11-23 07:00 | Outpatient (CLI) | payer MEDICAID, SELFPAY ==
[2019-11-23 11:44] LABS: HCT 44.4 % (40.0-50.0); HGB 14.9 g/dL (13.5-17.5); Mean Corp. HGB Concentration 33.6 g/dL (32.0-36.0); Mean Corpuscular Hemoglobin 31.2 pg (27.0-33.0); Mean Corpuscular Volume 92.9 fL (80-95); Mean Platelet Volume 8.7 fL (8.0-11.0); Platelet Count 317 x1000/uL (130-400); RBC 4.78 m/cumm (4.50-6.00); RBC Distribution Width 12.7 % (11.8-14.1); White Blood Cell Count 6.83 k/cumm (4.4-10.8)
[2019-11-23 12:15] LABS: ALT 37 U/L (16-63); AST 20 U/L (15-37); Albumin 3.9 g/dL (3.4-5.0); Alkaline Phosphatase 107 U/L (46-116); Anion Gap 10.6 mmol/L (3-11); BUN 27 mg/dL (7-18); Bilirubin, Total 0.3 mg/dL (0.2-1.0); C-Reactive Protein 0.23 mg/dL (0.0-0.3); CO2 26.4 mmol/L (21.0-32.0); CREATININE 0.85 mg/dL (0.70-1.30); Calcium 9.5 mg/dL (8.5-10.1); Chloride 104 mmol/L (98-107); Creatine Kinase 129 U/L (39-308); Glucose 93 mg/dL (74-106); Potassium 4.3 mmol/L (3.5-5.1); Sodium 141 mmol/L (136-145); Total Protein 7.2 g/dL (6.4-8.2); Uric Acid 7.4 mg/dL (3.5-7.2)
[2019-11-23 12:28] LABS: ESR 14 mm/hr (0-15)
[2019-11-24 15:17] LABS: Aldolase 2.9 U/L (<7.7)
[2019-11-26 15:02] LABS: ANA Interpretation Negative (Negative)
== END 2019-11-23 07:20 ==
PROVIDERS: PCP Family Medicine; Visit Provider Family Medicine
DX: M10.9 Gout, unspecified (principal); M25.50 Pain in unspecified joint; M79.10 Myalgia, unspecified site
CPT/HCPCS: 36415; 80053; 82550; 85027; 85652; 82085; 84550; 86038; 86140; 86431

== ENCOUNTER 2020-04-25 03:32 | Outpatient (CLI) | payer MEDICAID, SELFPAY ==
--- NOTE | 2020-04-25 06:45 | DI.RAD_ITS ---
EXAM: XR CHEST 2V PA LATERAL CLINICAL HISTORY: shortness of breath,R06.02 TECHNIQUE: 2D digital imaging was performed. COMPARISON: CR XR CHEST 2V PA LATERAL from 02/17/2019 FINDINGS: MEDIASTINUM: Normal. HEART: Normal. PULMONARY VASCULATURE: Normal. LUNGS: Clear. PLEURAL SPACE: No pleural effusion or pneumothorax. BONE:Normal. OTHER FINDINGS:Normal. IMPRESSION: No acute pulmonary findings. DATA REPOSITORY: RADIATION DOSE DELIVERED:
== END 2020-04-25 03:52 ==
PROVIDERS: PCP Family Medicine; Visit Provider Nurse Practitioner Family
DX: R06.02 Shortness of breath (principal)
CPT/HCPCS: 71046

== ENCOUNTER 2020-06-13 11:17 | Outpatient (CLI) | payer MEDICAID, SELFPAY ==
[2020-06-16 18:14] LABS: SARS-CoV-2 RNA Undetected (Undetected)
== END 2020-06-13 11:37 ==
PROVIDERS: PCP Family Medicine; Visit Provider Family Medicine
DX: Z11.59 Encounter for screening for other viral diseases (principal)
CPT/HCPCS: U0003

== ENCOUNTER 2020-08-25 10:49 | Outpatient (CLI) | payer MEDICAID, SELFPAY ==
[2020-08-25 14:29] LABS: Abs Immature Grans 0.03 10^3/uL (0.0-0.06); Absolute Basophil Count 0.02 10^3/uL (0.0-0.2); Absolute Eosinophil Count 0.28 10^3/uL (0.0-0.7); Absolute Lymphocyte Count 3.09 10^3/uL (1.2-3.4); Absolute Monocyte Count 0.88 10^3/uL (0.1-0.8); Absolute Neutrophil Count 5.17 10^3/uL (1.2-6.7); Basophils % 0.2; HCT 41.4 % (40.0-50.0); HGB 14.1 g/dL (13.5-17.5); Immature Grans % 0.3; Lymphocytes % 32.6; MCH 31.7 pg (27.0-33.0); MCHC 34.1 % (32.0-36.0); MPV 8.1 fL (8.0-11.0); Monocytes % 9.3; Neutrophils % 54.6; Nucleated RBC 0 %; Platelet Count 284 10^3/uL (130-400); RBC 4.45 10^6/uL (4.36-5.78); RDW 11.9 % (11.8-14.1); RDW-SD 41.1 fL; WBC 9.47 10^3/uL (4.4-10.8)
[2020-08-25 15:27] LABS: ALT 46 U/L (16-63); AST 26 U/L (15-37); Alkaline Phosphatase 102 U/L (46-116); Anion Gap 10.5 mmol/L (3-11); BUN 16 mg/dL (7-18); Bilirubin, Total 0.2 mg/dL (0.2-1.0); CO2 29.5 mmol/L (21.0-32.0); CREATININE 1.07 mg/dL (0.70-1.30); Calcium 9.4 mg/dL (8.5-10.1); Chloride 102 mmol/L (98-107); Glucose 89 mg/dL (74-106); Potassium 4.2 mmol/L (3.5-5.1); Sodium 142 mmol/L (136-145)
== END 2020-08-25 11:09 ==
PROVIDERS: PCP Family Medicine; Visit Provider Family Medicine
DX: R07.81 Pleurodynia (principal)
CPT/HCPCS: 36415; 80053; 85025

== ENCOUNTER 2020-08-25 10:49 | Outpatient (CLI) | payer MEDICAID, SELFPAY ==
--- NOTE | 2020-08-25 14:13 | DI.RAD_ITS ---
EXAM: XR CHEST 2V PA LATERAL CLINICAL HISTORY: 2-week history of right-sided pleuritic pain. R07.81 PLEURODYNIA TECHNIQUE: 2D digital imaging was performed. COMPARISON: CR XR CHEST 2V PA LATERAL from 04/25/2020 FINDINGS: MEDIASTINUM: Normal. HEART: Normal. PULMONARY VASCULATURE: Normal. LUNGS: Clear. PLEURAL SPACE: No pleural effusion or pneumothorax. BONE:Within normal limits for the patient's age. OTHER FINDINGS:Normal. IMPRESSION: No acute pulmonary findings. DATA REPOSITORY: RADIATION DOSE DELIVERED:
--- NOTE | 2020-08-25 15:15 | DI.CT_ITS ---
EXAM: CT CHEST PE CTA CLINICAL HISTORY: RT SIDE PLEURITIC CHEST PAIN/??? PE R07.81 PLEURODYNIA. TECHNIQUE: Imaging Protocol: Axial CT angiography was performed with multi-slice acquisition and mu lti-planar and/or 3D reconstructions. CONTRAST MATERIAL: Intravenous: Omnipaque 350 Contrast volume:100 mL COMPARISON: CR XR CHEST 2V PA LATERAL from 08/25/2020 FINDINGS: Pulmonary Arteries: No evidence of filling defect to suggest pulmonary emboli. Tracheobronchial tree: Patent where visualized. Mediastinum and Gisselle: No dominant adenopathy or fluid collection. Pulmonary parenchyma: No consolidation or dominant measurable mass. No architectural distortion. Pleura: No effusion or pneumothorax. Heart: The heart is not dilated. Minimal coronary artery calcification. No significant pericardial ef fusion. Aorta: Thoracic aorta non-dilated. No evidence of dissection. Upper abdomen: Unremarkable. Bones: Degenerative changes. Soft tissues: Unremarkable. IMPRESSION: No evidence of pulmonary embolism, thoracic aortic dissection or aneurysm. RADIATION DOSE DELIVERED: 513.41mGy.cm Total DLP DATA REPOSITORY: All CT scans at this facility are submitted to the National Radiology Data Registry (NRDR) Dose Index Registry (DIR) with the [employer] (ACR). RADIATION OPTIMIZATION: All CT scans at this facility use at least one of these dose optimization te chniques: automated exposure control; mA and/or kV adjustment per patient size (includes targeted exa ms where dose is matched to clinical indication); or iterative reconstruction.
[2020-08-25] MEDS: Omnipaque 350 MG/ML 100 ML BTL IJ (15:57)
[2020-08-25] MEDS: Normal Saline - Diluent 50 ML VIAL IV (15:58)
--- NOTE | 2020-08-28 16:03 | DI.VRAD_ITS ---
PROCEDURE INFORMATION: Exam: CT Angiography Chest With Contrast Exam date and time: 08/25/2020 3:52 PM Age: 50 years old Clinical indication: Pleuordynia; Patient HX: R side pleuritic pain; Additional info: ? Pe TECHNIQUE: Imaging protocol: Computed tomographic angiography of the chest with intravenous contrast. 3D rendering (Not supervised by radiologist): MIP and/or 3D reconstructed images were created by the technologist. COMPARISON: CR XR CHEST 2V PA LATERAL 08/25/2020 2:05 PM FINDINGS: Pulmonary arteries: Excellent opacification of the pulmonary arteries. No filling defect is identified in the pulmonary arteries to suggest the presence of embolism. Aorta: Unremarkable. No aortic aneurysm. No aortic dissection. Lungs: Unremarkable. No consolidation. No masses. Pleural space: Unremarkable. No pneumothorax. No pleural effusion. Heart: Unremarkable. No cardiomegaly. No pericardial effusion. Lymph nodes: Unremarkable. No enlarged lymph nodes. Bones/joints: Unremarkable. No acute fracture. Soft tissues: Unremarkable. IMPRESSION: 1. Normal CT angiogram of the chest. No pulmonary embolism identified. Dictated and Authenticated by: Lorin Perez MD. Ordering:SHANEL Khoury MD
== END 2020-08-25 11:09 ==
PROVIDERS: PCP Family Medicine; Visit Provider Family Medicine
DX: R07.81 Pleurodynia (principal)
CPT/HCPCS: 71275; 71046; J3490

== ENCOUNTER 2020-11-12 15:20 | Outpatient (REF) | payer MEDICAID, SELFPAY ==
[2020-11-12 22:08] LABS: ALT 52 U/L (16-63); AST 22 U/L (15-37); Albumin 4.1 g/dL (3.4-5.0); Alkaline Phosphatase 122 U/L (46-116); Bilirubin, Total 0.2 mg/dL (0.2-1.0); Lipase 106 U/L (73-393); Total Protein 7.4 g/dL (6.4-8.2)
[2020-11-12 22:09] LABS: Bilirubin, Direct < 0.05 mg/dL (0.00-0.20)
== END 2020-11-12 15:40 ==
LOC: LBN 15:20
PROVIDERS: PCP Family Medicine; Visit Provider Nurse Practitioner Family
DX: R10.9 Unspecified abdominal pain (principal)
CPT/HCPCS: 80076; 83690

== ENCOUNTER 2020-11-28 04:41 | Outpatient (CLI) | payer MEDICAID, SELFPAY ==
--- NOTE | 2020-11-28 06:30 | DI.US_ITS ---
EXAM: US ABDOMEN CLINICAL HISTORY: RUQ PAIN, R10.11,? CHOLECYSTITIS TECHNIQUE: Ultrasound of complete upper abdomen performed using standard protocol. COMPARISON: US ABDOMEN ULTRASOUND (P) from 01/12/2017 US ABDOMEN ULTRASOUND (P) from 01/12/2017 US US HERNIA from 11/28/2020 FINDINGS: There is no ascites evident. LIVER: Liver appears slightly enlarged and is hyperechoic indicating steatosis. No obvious excrete f ocal hepatic lesions identified on these images. GALLBLADDER/BILIARY: There are no gallstones. No gallbladder wall edema nor pericholecystic fluid. The common hepatic duct measurement is upper normal, measuring 6 millimeters PANCREAS: There is no evidence of pancreatic mass nor dilatation of the pancreatic duct. SPLEEN: The spleen is not enlarged and there are no intrasplenic lesions evident. KIDNEYS:Kidneys exhibit normal size with no evidence of solid mass, calculus, nor hydronephrosis. The re is a cyst in the lateral cortex of the left kidney which measures 3 x 3 x 2.8 centimeters ABDOMINAL AORTA: There is no evidence of abdominal aortic aneurysm. IVC: Normal diameter where visualized. IMPRESSION: 1. No evidence of cholelithiasis nor dilatation of the biliary tree. 2. Hepatomegaly and hepatic steatosis. Correlation appropriate hepatic blood work is recommended. 3. There is no ascites. DATA REPOSITORY:
--- NOTE | 2020-11-28 06:30 | DI.US_ITS ---
EXAM: US HERNIA CLINICAL HISTORY: RT SIDED ABD PAIN, ? HERNIA. TECHNIQUE: Ultrasound was performed using standard protocol. COMPARISON: US ABDOMEN ULTRASOUND (P) from 01/12/2017 FINDINGS: Sonographic assessment utilizing grayscale and color Doppler imaging was performed and targeted to th e area of clinical concern. Study performed both without and with Valsalva maneuver. There does not appear to be ultrasound evidence of a soft tissue mass nor hernia in the right upper q uadrant abdominal wall which is apparently the area of concern. IMPRESSION: No ultrasound evidence of soft tissue mass or hernia in the anterior abdominal wall over the right up per quadrant which is apparently the area of clinical concern. DATA REPOSITORY:
--- NOTE | 2020-12-02 10:18 | PDOC.ANES ---
Date of service: 12/02/20 Time of Service: 10:19 Anesthesia Note Report Anesthesia Note: Request this morning to call and discuss case with patient related to concerns for BMI and REX. The patients main concern is the possible loss of his airway during his EGD/Colon. The patient denies a personal or familial history of anesthesia problems and is currently compliant with his CPAP at night. He did express wish to bring his CPAP on day of surgery. I explained that it was not necessary, but if he was concerned would be completely fine for him to bring it in with him. I answered his questions related to anesthetic plan, we discussed risks and benefits and the patient denied any further questions. I did ask him to call with any other concerns and provided oral instructions on how to contact the anesthesia department. We are looking forward to seeing him on day of surgery.
== END 2020-11-28 05:01 ==
PROVIDERS: PCP Family Medicine; Visit Provider Nurse Practitioner Family
DX: R10.11 Right upper quadrant pain (principal); K76.0 Fatty (change of) liver, not elsewhere classified
CPT/HCPCS: 76857; 76700

== ENCOUNTER 2020-12-12 02:06 | Outpatient (CLI) | payer MEDICAID, SELFPAY ==
[2020-12-12 09:38] LABS: Calculated LDL 164 mg/dL (<100); Cholesterol 237 mg/dL (<200); HDL Cholesterol 37 mg/dL (40-60); Triglyceride 181 mg/dL (<150)
[2020-12-12 09:51] LABS: Hemoglobin A1C 5.4 % (<5.7)
== END 2020-12-12 02:26 ==
PROVIDERS: Nurse Practitioner Family; PCP Family Medicine; Visit Provider Family Medicine
DX: E78.5 Hyperlipidemia, unspecified (principal); Z13.1 Encounter for screening for diabetes mellitus
CPT/HCPCS: 36415; 80061; 83036

== ENCOUNTER 2020-12-30 02:59 | Outpatient (CLI) | payer MEDICAID, SELFPAY ==
[2020-12-31 13:29] LABS: COVID-19 RT-PCR UVMMC Result Negative (Negative)
== END 2020-12-30 03:00 | disposition home or self-care (01) ==
LOC: LBO 02:59
PROVIDERS: PCP Family Medicine; Visit Provider Surgery
DX: Z20.822 Contact with and (suspected) exposure to COVID-19 (principal); Z01.818 Encounter for other preprocedural examination
CPT/HCPCS: U0003

== ENCOUNTER 2021-01-02 06:13 | Day surgery (SDC) | payer MEDICAID, SELFPAY ==
--- NOTE | 2021-01-01 07:42 | BOWEL_PTH ---
PATIENT: Homar Morris JR LOC: [facility] U#:[id number] AGE/SX: 50/M ROOM: RE01/02/[address]: Susan Hui : 1970 BED: DIS: 01/02/2021 SPEC #: [id number] RECD: 01/02/21 10:26 STATUS: JANIE RE #: [id number] RAQUEL: 01/01/21 07:[address]: Susan Hui DEPT: Surgical Specimen RECD BY: Alysa Nash ENTERED: 01/02/21 10:36 SP TYPE: Bowel OTHR DR: Mert Wilkerson MD Tissues: 1 - BIOPSY BOWEL 2 - BIOPSY BOWEL 3 - STOMACH BIOPSY 4 - STOMACH BIOPSY 5 - STOMACH BIOPSY 6 - ESOPHAGUS BIOPSY 7 - ESOPHAGUS BIOPSY 8 - BIOPSY BOWEL Procedures: GROSS AND MICRO LEVEL 4 Comments: [id number]
--- NOTE | 2021-01-01 08:55 | W.PM.HP.N ---
Date of service: 01/02/21 Time of Service: 07:20 Assessment and Plan Assessment and plan (1) Gastroesophageal reflux disease: Status: Acute (2) Hiatal hernia: Status: Acute (3) Obesity: Status: Acute Qualifiers: Body mass index: BMI 38.0-38.9 Obesity classification: adult class 2 (BMI 35 - 39.9) Obesity type: due to excess calories Serious obesity comorbidity presence: without serious comorbidity Qualified Code(s): E66.09 - Other obesity due to excess calories; Z68.38 - Body mass index [BMI] 38.0-38.9, adult (4) Obstructive sleep apnea: Status: Acute (5) Dark stools: Status: Acute (6) Family history of malignant neoplasm of colon in relative diagnosed when older than 50 years of age: Status: Acute Assessment and plan: Plan:Colonscopy w/ MAC The patient will be scheduled by my office. The pt understands that they need to do a bowel prep and the importance of hydration during this. The patient understands there is a theoretical risk of renal failure. For healthy patients we use Gatorade/Miralax Prep. For anyone with renal concerns- GoLytely will be used. Plavix and coumadin will need to be held except in unusual circumstances. Patients in A. Fib do not need to be bridged with Lovenox or on CVA prophylaxis. A baby ASA can be continued but full dose ASA needs to be stopped for 10 days prior to the procedure. A complete H & P is required within 30 days of the procedure. MAC is used for the colonoscopy. Colonoscopy does not require antibiotics prophylaxis. Thank you for allowing me to participate in the care of this Patient. A copy of the Endoscopy report will be forwarded Risks: Informed consent is obtained for the procedural (explained in simple layman's terms that the pt and/or family could understand) explaining risks vs benefits and alternatives to the procedure and consequences if we do not do the procedure and need/rational for the procedure. Risks include but are not limited to: bleeding, infection, perforation of colon. This would necessitate emergency surgery to repair the damage w/ possible ostomy; and other associated complications w/ the required surgery. Also complications of anesthesia including aspiration, FL/CVA/. I discussed with the patient would they could expect during the procedure, post procedure and recovery time and risks. The patient understands that they need to have a ride home after the procedure. The patient was given all this information in writing and expressed understanding. to your office. If there are any questions or concerns please feel free to contact our office. History of Present Illness Consults Consult date: 01/02/21 Narrative: From consult on 12/01: -No ventral or umbilical hernias on physical exam today -Steatosis on ultrasound. No signs of gallbladder disease. Encourage weight loss. A1c is pending. Cholesterol panel is pending. -GERD EGD. change PPI. Continue with lifestyle modifications: no alcohol, tobacco products, Aspirin or NSAID's (ibuprofen, Motrin, Naprosyn, aleve, etc), soda pop/any carbonated beverages, caffeine (including tea & chocolate), and acidic foods, (tomatoes, citrus, onions, peppermints) spicy foods. Do not lie down for 30 minutes after eating, and do not eat 2 hours prior to bedtime. Avoid wearing tight fitting clothing/ belts -Family history of colorectal cancer. And history of tubular adenomas. Patient needs to be on a 5-year schedule for colonoscopy for colon cancer evaluation. Plan:Colonscopy and EGD w/ MAC The patient will be scheduled by my office. The pt understands that they need to do a bowel prep and the importance of hydration during this. The patient understands there is a theoretical risk of renal failure. For healthy patients we use Gatorade/Miralax Prep. For anyone with renal concerns- GoLytely will be used. Plavix and coumadin will need to be held except in unusual circumstances. Patients in A. Fib do not need to be bridged with Lovenox or on CVA prophylaxis. A baby ASA can be continued but full dose ASA needs to be stopped for 10 days prior to the procedure. A complete H & P is required within 30 days of the procedure. MAC is used for the colonoscopy. Colonoscopy does not require antibiotics prophylaxis. Thank you for allowing me to participate in the care of this Patient. A copy of the Endoscopy report will be forwarded Risks: Informed consent is obtained for the procedural (explained in simple layman's terms that the pt and/or family could understand) explaining risks vs benefits and alternatives to the procedure and consequences if we do not do the procedure and need/rational for the procedure. Risks include but are not limited to: bleeding, infection, perforation of colon. This would necessitate emergency surgery to repair the damage w/ possible ostomy; and other associated complications w/ the required surgery. Also complications of anesthesia including aspiration, FL/CVA/. I discussed with the patient would they could expect during the procedure, post procedure and recovery time and risks. The patient understands that they need to have a ride home after the procedure. The patient was given all this information in writing and expressed understanding. to your office. If there are any questions or concerns please feel free to contact our office. 60 minutes was spent with this patient today reviewing all his past medical history is improved with procedures, adjuvant medical testing and labs. Reviewing by the provider's notes. And discussing the proposed procedures and trying to alleviate his fears of anesthesia. Plan Detail Total time on date of encounter, ([id number] and non nwez-an-ghel) (minutes): 60 HPI -Patient is a 50-year-old male seen at the request of his PCP regarding right upper quadrant pain. This started after he moved some heavy objects. He describes it as a dull achy burning sensation in the right upper quadrant. It became worse a week ago when he ate [place] food. He denies any diarrhea. He was seen in urgent care for this and they ordered a right upper quadrant ultrasound. MPRESSION: 1. No evidence of cholelithiasis nor dilatation of the biliary tree. 2. Hepatomegaly and hepatic steatosis. Correlation appropriate hepatic blood work is recommended. 3. There is no ascites. -His second concern is he feels like he has something stuck in his throat constantly. He has been on omeprazole for many years 20 mg daily. Only increase this to 20 mg twice daily. If he bends over, material will come up into his throat. Actually did go to urgent care because he felt like he had something stuck in his throat. He drinks 3 to 4 cups of coffee a day. He is not a smoker. He does not drink soda. He has been taking more ibuprofen lately because of the right upper quadrant pain. He rarely drinks alcohol. He had an EGD 25 years ago. He does not remember why. They said he had a hiatal hernia at that time. -His third concern is colon cancer. His father was diagnosed with colorectal cancer in his 50s. His father sister/his aunt had also had colon cancer in her 50s and from this. As far as he knows there was never any family genetic testing. He is not aware of other cancers that run in the family. He had a colonoscopy 7 years ago which He has not had any lower quadrant abdominal pain. He is not had any rectal bleeding. He has not had any weight loss. He has no pain or difficulty moving his bowels. -His fourth concern is that he is extremely afraid of anesthesia. Because his of his obstructive sleep apnea he is afraid that we are going to lose control of his airway during the procedure and diet. I had a very long conversation about the events area techniques and trying to alleviate his anxiety. I will have anesthesia talk to him prior to the day of the procedure to try to alleviate some of his fears Today on exam: Patient completed the prep. It is clear yellow fluid that is coming out now. He is having abdominal pain and cramping. He is having no chest pain or shortness of breath. He is having no fevers or chills. He has no productive cough. He has no exposure to Covid that he is aware of. His preop Covid test was negative. They reviewed weight is good. Procedure post procedure recovery time and risks including not limited to: Bleeding, infection, perforation, and complications with anesthesia. Patient is agreeable amendable to the procedure. [facility] Medical History Anxiety Chewing tobacco use quit 1 year ago Depression Essential hypertension Family history of colon cancer in father Fatigue GERD (gastroesophageal reflux disease) Gout involving toe of right foot Headache Hiatal hernia History of colon polyps Hyperlipidemia Obesity REX (obstructive sleep apnea) Psoriasis Tick bite Family History Mother Hypertension Father Diabetes Hypertension Colon cancer PATERNAL AUNT Colon cancer Sister No problems noted. Son Hypertension Daughter No problems noted. Social History (Updated 12/08/20 @ 13:55 by Luci Baker) Smoking/Tobacco Use Status: Former Tobacco Use Quit Date: 08/14/19 Tobacco: How many years used: 20 Smokeless tobacco user: snuff Smoking risk assessment performed?: Yes Alcohol Intake: never Drug use: Never Substance use type: does not use Caregiver/Support person: No Household members: none Housing: house Do you need help understanding health information?: Rarely Pets and animals: Yes Pets and animals: cat(s) Sexually active: Yes Do you think of yourself as: straight/heterosexual Current gender identity: male What is your relationship status?: How often do you talk on the phone with friends or family?: three or more times per week How often do you get together with friends or relatives?: twice per week How often do you attend rastafarian or mandaeism services?: decline to answer Do you belong to any clubs or organized social groups?: no Panel score (0-1 are the most socially isolated patients): 1 What type of physical activity do you participate in: walking Duration: 15-30 minutes/day Frequency: 3-4 times per week Xiomara/Taoism: Oriental Orthodox Special xiomara needs: No Seatbelt use: never Helmet use: No Drive intox or ride w/intox local company tanker driver: No Do you feel safe at home: Yes Do you feel safe in your relationship?: Yes Meds Home Medications and Allergies Home Medications Medication Instructions Recorded Confirmed Type albuterol sulfate 90 mcg/actuation 2 puff IH Q4H PRN #8.5 gm 02/11/20 12/31/20 Rx aerosol inhaler fluticasone propionate 50 2 spray PJ DAILY #36.4 ml 03/13/20 12/31/20 Rx mcg/actuation nasal spray,suspension omeprazole 20 mg capsule,delayed 20 mg PO DAILY #90 cap 10/28/20 01/02/21 Rx release lisinopril 10 mg tablet 10 mg PO DAILY #90 tab-cap 11/10/20 01/02/21 Rx valacyclovir 1 gram tablet 1,000 mg PO Q12H PRN #30 tab 11/10/20 12/31/20 Rx cholecalciferol (vitamin D3) 100 100 mcg PO DAILY 12/01/20 01/02/21 History mcg (4,000 unit) capsule ibuprofen 200 mg capsule 600 mg PO Q6H PRN cap 12/01/20 12/31/20 History sertraline 50 mg tablet 50 mg PO DAILY #90 tab-cap 12/29/20 01/02/21 Rx Allergies Allergy/AdvReac Type Severity Reaction Status Date / Time No Known Allergies Allergy Verified 12/31/20 13:46 Exam Narrative Exam Narrative: PHYSICAL EXAM GENERAL APPEARANCE: Alert, healthy appearance, oriented, in no acute distress SKIN: No rashes. No breakdown HYDRATION: Well hydrated HEAD, EYES, EARS, NECK, THROAT: Head is normocephalic, pupils equal, round, reactive to light and accommodation, ocular movement intact, sclera clear and no jaundice. Dentition intact. No sore throat. No jaw pain. No thrush NECK: Supple, Trachea midline. No JVD. LUNGS: normal respiration/nl chest excursion. Clear to auscultation B/l no R/R/W HEART: Regular rate and rhythm, EXTREMITY: No edema or cyanosis no leg pain, redness, swelling. No IV infiltration ABDOMEN: non tender to palpation, no masses or distention, no hernias. Normal bowel sounds NEURO: no focal neuro deficits. COVID-19 Screening Have you, or household traveled for leisure in last 14 days?: No Had IN PERSON contact w/suspected or confirmed C-19 person: No
[2021-01-02 06:25] VITALS: BP 117/75; PULSE 75; RESP 16; TEMP 36.5; O2SAT 97
[2021-01-02] MEDS: Lactated Ringers 1,000 ML 80 ML IV (06:55)
--- NOTE | 2021-01-02 08:17 | ENDO_ITS ---
Date of service: 01/02/21 Time of Service: 08:17 Endoscopy Report DATE OF PROCEDURE: 01/02/21 PRE-OP DIAGNOSIS: gastritis/hiatal hniera/fudic polyps POST-OP DIAGNOSIS: other SURGEON: Susan Hui ANESTHESIA: GETA ESTIMATED BLOOD LOSS: 1 PATHOLOGY: other COMPLICATIONS: None DISPOSITION: same day PROCEDURE DESCRIPTION: After informed consent was obtained the patient was take to the procedure room and placed in a supine position. Monitors were applied and a time out was done. The patients name, date of , procedure type, allergies to medications and metal in their body was reviewed. A bite block was placed and the patient was sedated. Once sedated and comfortable the gastroscope was advanced through the oropharynx which was grossly normal into the esophagus. The proximal and mid-esophagus were nl. In the distal esophagus there was no esophageal erosions, varices, diverticula or stricture.. He does have a small hiatal hernia. He has some mild esophagitis. The scope was advanced into the stomach and through the pylorus into the 3rd portion of the duodenum. The duodenum was noted to be nl Biopsies were done. All specimens are retrieved and no bleeding is noted. There are a few small polyps in the dependent portion of the stomach. These polyps are small, less than 5 mm. No sign of bleeding or infarction. 1 of these senior human resources representative polyps was biopsied. He has some mild gastritis in a striped pattern radiating out from the antrum. the scope was retracted back into the stomach and biopsies were done to rule out H. pylori. There were no ulcers. The scope was retroflexed. The cardia and fundus were noted to be normal. There small sliding a hiatal hernia noted. The scope was retracted back into the esophagus and biopsies were done of the GE junction to rule out Hudson's. The Z line was regular. The GE junction was at 38 cm. The scope was removed and the patient was woken up and taken back to [facility] in stable condition. Follow up:
--- NOTE | 2021-01-02 08:20 | W.COLOREPORT ---
Date of service: 01/02/21 Time of Service: 08:20 Colonoscopy Report Date of procedure: 01/02/21 Pre-op diagnosis general: fdamily hx of crc cancer Post-op diagnosis procedure note: other (polyp ) Anesthesia proc note operative: GETA Estimated blood loss (mL): 0 Pathology: other Complications: None Disposition: PACU Prep: Miralax/Dulcolax Retraction Time: 10 Procedure Description: After informed consent was obtained the patient was taken to the procedure room and placed in a left decubitous position. Monitors were applied and a time out was done. The patients name, date of , procedure, allergies to medications and metal in their body was reviewed. The patient was then sedated. Once sedated and comfortable a rectal exam was done. External exam was normal. Internal exam revealed a normal sphincter tone and no palpable masses. The scope was then introduced and retrofelexed. no internal hemorrhoids were identified. The scope was then advanced to the cecum w/out difficulty. The TI and appendiceal orifice were identified. The prep was good. The scope was then slowly retracted over 10 minutes back into the rectum. Polyps were removed: one small polyp is removed at 90 cm. It is less than 5 mm. It is flat. Is removed with a cold biting forcep and one bite. The scope was removed and the patient was woken up and taken back to Same day surgery in stable condition. The patient tolerated the procedure well and there were no immediate complications. Follow up: The patient should follow up in 5 years unless they develop changes in bowel habits or other new gastrointestinal complaints.
--- NOTE | 2021-01-02 08:22 | W.PM.DSUDISC ---
Discharge Plan Disposition Patient Disposition: HOME Condition: Good Discharge Details Attending Provider: Susan Hui Primary Care Provider: Mert Wilkerson Home Meds and New Rx's Prescriptions: New pantoprazole [Protonix] 40 mg tablet,delayed release (DR/EC) 40 mg PO DAILY Qty: 90 RF: 5 Continued cholecalciferol (vitamin D3) 100 mcg (4,000 unit) capsule 100 mcg PO DAILY RF: 0 albuterol sulfate [Ventolin HFA] 90 mcg/actuation HFA aerosol inhaler 2 puff IH Q4H PRN (Reason: shortness of breath or wheezing) Qty: 8.5 RF: 1 fluticasone propionate 50 mcg/actuation spray,suspension 2 spray PJ DAILY Qty: 36.4 RF: 2 lisinopril 10 mg tablet 10 mg PO DAILY Qty: 90 RF: 3 valacyclovir 1 gram tablet 1,000 mg PO Q12H PRN (Reason: Herpes) Qty: 30 RF: 0 sertraline 50 mg tablet 50 mg PO DAILY Qty: 90 RF: 3 Discontinued ibuprofen 200 mg capsule 600 mg PO Q6H PRNRF: 0 omeprazole 20 mg capsule,delayed release(DR/EC) 20 mg PO DAILY Qty: 90 RF: 4 Discharge Instructions Additional Instructions: Findings:gastritis/gastric polyps/hiatal hernia. Small colon polyp x1 -Continue with lifestyle modifications: no alcohol, tobacco products, Aspirin or NSAID's (ibuprofen, Motrin, Naprosyn, aleve, etc) Limit: soda pop/any carbonated beverages, caffeine (including tea & chocolate), and acidic foods, (tomatoes, citrus, onions, peppermints) spicy or fried/fatty foods. Do not lie down for 30 minutes after eating, and do not eat 2 hours prior to bedtime. Avoid wearing tight fitting clothing/ belts -change PPI to protonix -will send a letter w/ pathology results in 3-4 weeks. Follow up:repeat Colon scope in 5yrs time Please call if you develop: fevers >101.5 Nausea or Vomiting Abdominal pain that is not transient DAY SURGERY UNIT POST COLONOSCOPY INSTRUCTIONS 1. Because there will be medication in your system for the next 24 hours, you may feel a little sleepy. Your coordination will be affected. Therefore: a. Do not drive or operate dangerous equipment for 24 hours. b. Do not drink alcohol beverages for 24 hours (not even beer). c. Plan to go home and rest for the day. 2. Generally there are no restrictions on your activity after a day or so has gone by, but you may feel a bit fatigued for a few days. 3 After you arrive home you may have a light meal and return to a normal diet as you can tolerate it without feeling sick to your stomach. 4. After surgery, you may feel pain or discomfort. This should be only transient, but if it persists please contact your doctor. 5. If there are any questions regarding the findings of your procedure, please feel free to contact your doctor. 6. If you are unable to contact your doctor with a problem, contact the hospital at [phone]. 7. Continue all your regular medications unless directed otherwise. I understand the above instructions and have no questions. Signature of Patient or Responsible Adult Escort Date/Time Name of Responsible Adult Escort Signature of Nurse Date/Time Discharge Orders Discharge Orders: Discharge Order (Routine); Ordered 01/02/21 Ordered By: uSsan Hui DS: Diagnosis Discharge Diagnosis (1) Gastroesophageal reflux disease: Status: Acute (2) Hiatal hernia: Status: Acute (3) Obesity: Status: Acute (4) Obstructive sleep apnea: Status: Acute (5) Dark stools: Status: Acute (6) Family history of malignant neoplasm of colon in relative diagnosed when older than 50 years of age: Status: Acute (7) Chronic erosive gastritis: Status: Acute (8) Colon polyp: Status: Acute
[2021-01-02 08:48] VITALS: BP 124/83; PULSE 61; RESP 18; TEMP 36.2; O2SAT 95
== END 2021-01-02 09:28 | disposition home or self-care (01) ==
PROVIDERS: PCP Family Medicine; Visit Provider Surgery
PROC: (CPT 45380; principal; 2021-01-02 07:30)
DX: Z12.11 Encounter for screening for malignant neoplasm of colon (principal); D12.3 Benign neoplasm of transverse colon; K21.9 Gastro-esophageal reflux disease without esophagitis; K44.9 Diaphragmatic hernia without obstruction or gangrene; Z80.0 Family history of malignant neoplasm of digestive organs; G47.33 Obstructive sleep apnea (adult) (pediatric); K76.0 Fatty (change of) liver, not elsewhere classified
CPT/HCPCS: 45380; 88305; 99221; J2001

== ENCOUNTER 2021-03-13 04:08 | Outpatient (CLI) | payer MEDICAID, SELFPAY ==
--- NOTE | 2021-03-13 08:00 | DI.CT_ITS ---
Exam(s) CT HEAD CERVICAL SPINE WO EXAM: CT HEAD CERVICAL SPINE WO CLINICAL HISTORY: hit head on Air conditioner; pain in neck/head,GROGGY AT TIMES,HEADACHE,R5. TECHNIQUE: Imaging Protocol: Axial computed tomography images with coronal and sagittal reformatted images were created and reviewed COMPARISON: No exams were available for comparison FINDINGS: CT Head: Ventricles and Extra axial spaces: Normal in size and morphology for the patient's age. Hemorrhage: None. Cerebral parenchyma: Normal. Midline shift: None. Brainstem/Cerebellum: Normal. Calvarium: Normal. Visualized Paranasal sinuses/Mastoids: Clear. Soft Tissues: Unremarkable. CT Cervical Spine: Bones: No acute fracture or subluxation. Multilevel degenerative changes are seen in the cervical spi ne. Degenerative changes of the right uncovertebral joints at C3-4 causes mild right neural foramina l stenosis. There are hypertrophic changes of the uncovertebral joints bilaterally more on the right at C6-7 which causes right neural foraminal stenosis. There is no significant central spinal canal stenosis. Soft Tissues: Unremarkable. Lung Apices: Clear. IMPRESSION: 1. No acute intracranial process. 2. No acute fracture or subluxation in the cervical spine. 3. Multilevel degenerative changes causes right neural foraminal stenosis at C3-4 and C6-C7. RADIATION DOSE DELIVERED: 1,418.44mGy.cm Total DLP DATA REPOSITORY: All CT scans at this facility are submitted to the National Radiology Data Registry (NRDR) Dose Index Registry (DIR) with the [employer] (A[employer]). RADIATION OPTIMIZATION: All CT scans at this facility use at least one of these dose optimization te chniques: automated exposure control; mA and/or kV adjustment per patient size (includes targeted exa ms where dose is matched to clinical indication); or iterative reconstruction.
== END 2021-03-13 04:28 ==
PROVIDERS: PCP Family Medicine; Visit Provider Family Medicine
DX: M54.2 Cervicalgia (principal); R51.9 Headache, unspecified; M50.31 Other cervical disc degeneration, high cervical region; M50.323 Other cervical disc degeneration at C6-C7 level
CPT/HCPCS: 70450; 72125

== ENCOUNTER 2021-03-13 16:37 | Outpatient (REF) | payer MEDICAID, SELFPAY ==
[2021-03-15 10:58] LABS: COVID-19 RT-PCR UVMMC Result Negative (Negative)
== END 2021-03-13 16:38 | disposition home or self-care (01) ==
LOC: LBN 16:37
PROVIDERS: PCP Family Medicine; Visit Provider Physician Assistant Medical
DX: Z20.822 Contact with and (suspected) exposure to COVID-19 (principal); J06.9 Acute upper respiratory infection, unspecified
CPT/HCPCS: U0003

== ENCOUNTER 2021-04-16 01:58 | Outpatient (CLI) | payer MEDICAID, SELFPAY ==
--- NOTE | 2021-04-16 08:30 | DI.RAD_ITS ---
Exam(s) XR LUMBAR SPINE COMPLETE EXAM: XR LUMBAR SPINE COMPLETE CLINICAL HISTORY: low back pain with radiation to rt groin/testicle,M54.9. TECHNIQUE: 2D digital imaging was performed. COMPARISON: No previous for comparison. FINDINGS: There is a grade 1 pseudo spondylolisthesis of L4 on L5. No acute fracture or subluxation. No spond ylolysis. There is mild disc space narrowing at L4-5 and L5-S1. There are endplate osteophytes at m ultiple levels of the lumbar spine. There are degenerative changes of the facets at L4-5 and L5-S1. IMPRESSION: Mild degenerative changes of the lumbar spine. Grade 1 pseudo spondylolisthesis of L4 on L5. DATA REPOSITORY: RADIATION DOSE DELIVERED:
== END 2021-04-16 02:18 ==
PROVIDERS: PCP Family Medicine; Visit Provider Family Medicine
DX: M54.5 Low back pain (principal); M54.16 Radiculopathy, lumbar region; M51.17 Intervertebral disc disorders with radiculopathy, lumbosacral region; M47.27 Other spondylosis with radiculopathy, lumbosacral region
CPT/HCPCS: 72110

== ENCOUNTER 2021-05-05 03:20 | Outpatient (CLI) | payer MEDICAID, SELFPAY ==
[2021-05-05 12:05] LABS: Abs Immature Grans 0.02 10^3/uL (0.0-0.06); Absolute Basophil Count 0.05 10^3/uL (0.0-0.2); Absolute Eosinophil Count 0.22 10^3/uL (0.0-0.7); Absolute Lymphocyte Count 2.89 10^3/uL (1.2-3.4); Absolute Monocyte Count 0.84 10^3/uL (0.1-0.8); Absolute Neutrophil Count 4.73 10^3/uL (1.2-6.7); Basophils % 0.6; Eosinophils % 2.5; HCT 43.7 % (40.0-50.0); HGB 14.8 g/dL (13.5-17.5); Immature Grans % 0.2; MCH 31.4 pg (27.0-33.0); MCHC 33.9 % (32.0-36.0); MCV 92.6 fL (80-95); MPV 8.5 fL (8.0-11.0); Monocytes % 9.6; Neutrophils % 54.1; Nucleated RBC 0 %; Platelet Count 291 10^3/uL (130-400); RBC 4.72 10^6/uL (4.36-5.78); RDW-SD 41.4 fL; WBC 8.75 10^3/uL (4.4-10.8)
[2021-05-05 13:07] LABS: ALT 70 U/L (16-63); AST 30 U/L (15-37); Albumin 3.9 g/dL (3.4-5.0); Alkaline Phosphatase 109 U/L (46-116); Anion Gap 12.7 mmol/L (3-11); BUN 18 mg/dL (7-18); Bilirubin, Total 0.2 mg/dL (0.2-1.0); CO2 24.3 mmol/L (21.0-32.0); CREATININE 1.1 mg/dL (0.70-1.30); Calcium 9.6 mg/dL (8.5-10.1); Chloride 103 mmol/L (98-107); Glucose 97 mg/dL (74-106); Potassium 4.3 mmol/L (3.5-5.1); Sodium 140 mmol/L (136-145); Total Protein 7.3 g/dL (6.4-8.2)
== END 2021-05-05 03:21 | disposition home or self-care (01) ==
LOC: LBO 03:20
PROVIDERS: PCP Family Medicine; Visit Provider Family Medicine
DX: R10.9 Unspecified abdominal pain (principal)
CPT/HCPCS: 36415; 80053; 85025

== ENCOUNTER 2021-05-08 15:12 | Outpatient (REF) | payer MEDICAID, SELFPAY ==
[2021-05-08 21:47] LABS: Amylase 47 U/L (25-115); Lipase 108 U/L (73-393)
== END 2021-05-08 15:13 | disposition home or self-care (01) ==
LOC: LBN 15:12
PROVIDERS: PCP Family Medicine; Visit Provider Emergency Medicine
DX: R10.9 Unspecified abdominal pain (principal)
CPT/HCPCS: 83690; 82150

== ENCOUNTER 2021-05-15 12:30 | Outpatient (REF) | payer MEDICAID, SELFPAY ==
[2021-05-19 15:38] LABS: Helicobacter pylori Ag, Feces Negative (Negative)
== END 2021-05-15 12:31 | disposition home or self-care (01) ==
LOC: LBN 12:30
PROVIDERS: PCP Family Medicine; Visit Provider Emergency Medicine
DX: R10.31 Right lower quadrant pain (principal); R10.13 Epigastric pain
CPT/HCPCS: 87338

== ENCOUNTER 2021-09-18 03:23 | Outpatient (CLI) | payer MEDICAID, SELFPAY ==
[2021-09-19 04:40] LABS: COVID-19 RT-PCR UVMMC Result Positive (Negative)
== END 2021-09-18 03:24 | disposition home or self-care (01) ==
LOC: LBO 03:23
PROVIDERS: PCP Family Medicine; Visit Provider Nurse Practitioner Family
DX: Z20.822 Contact with and (suspected) exposure to COVID-19 (principal)
CPT/HCPCS: U0003

== ENCOUNTER 2021-09-22 15:01 | Emergency (ER) | payer MEDICAID, SELFPAY ==
[2021-09-22 15:17] VITALS: BP 120/68; PULSE 78; RESP 16; TEMP 36.3; O2SAT 97
--- NOTE | 2021-09-22 15:45 | DI.RAD_ITS ---
Exam(s) XR PORTABLE CHEST AP EXAM: XR PORTABLE CHEST AP CLINICAL HISTORY: cough/sob, covid +. TECHNIQUE: 2D digital imaging was performed. COMPARISON: CR XR CHEST 2V PA LATERAL from 08/25/2020 FINDINGS: Heart size is upper normal. The mediastinum is not widened. Lungs are clear. No infiltrates nor obvious pleural effusions. IMPRESSION: No acute pulmonary findings on this single AP portable view of the chest. DATA REPOSITORY: RADIATION DOSE DELIVERED: All CT scans at this facility use at least one of these dose optimization techniques: automated exposure control; mA and/or kV adjustment per patient size (includes targeted e xams where dose is matched to clinical indication); or iterative reconstruction.
--- NOTE | 2021-09-22 16:53 | ED.GENADUL_ITS ---
Discharge Plan Disposition Patient Disposition: HOME Condition: Stable Discharge Details Clinical Impression: COVID-19 Primary Care Provider: Mert Wilkerson ED Provider: Guadalupe Stewart Home Meds and New Rx's Prescriptions: Continued prednisone 20 mg tablet 40 mg PO DAILY Qty: 10 RF: 0 albuterol sulfate [Ventolin HFA] 90 mcg/actuation HFA aerosol inhaler 2 puff IH Q4H PRN (Reason: shortness of breath or wheezing) Qty: 8.5 RF: 1 lisinopril 10 mg tablet 10 mg PO DAILY Qty: 90 RF: 3 valacyclovir 1 gram tablet 1,000 mg PO Q12H PRN (Reason: Herpes) Qty: 30 RF: 0 sertraline 50 mg tablet 50 mg PO DAILY Qty: 90 RF: 3 pantoprazole 40 mg tablet,delayed release (DR/EC) 40 mg PO DAILY RF: 0 pseudoephedrine HCl 60 mg Tablet 60 mg PO BID PRNRF: 0 acetaminophen 325 mg Tablet 975 mg PO Q6H PRNRF: 0 ibuprofen 200 mg Tablet 600 mg PO Q8H PRNRF: 0 Discharge Instructions Instructions: Viral Syndrome (ED) Additional Instructions: keep scheduled appointment tomorrow for monoclonal antibody infusion can alternate ibuprofen 600 mg with food 4 times daily and acetaminophen 650 mg 4 times daily monitor oxygen sats 2 times daily and report sustained sats less than 92%. Referrals: Mert Wilkerson MD [Primary Care Provider] - Medical Decision Making patient with known covid scheduled for monoclonal antibody infusion tomorrow, concerned about feeling worse after a walk today. presents here in no acute distress, vitals stable, oxygenating in high 90's on room air and no respiratory distress. safe for discharge to home, pulse oximeter provider. Imaging Data Radiologic Study: Imaging: X-Ray (chest) My impression: no acute findings HPI General Mode of arrival: ambulatory . Date/Time Provider Initiated Documentation: 09/22/21 15:25 . Limitations to Documentation: no limitations . Information obtained by: patient . HPI Narrative: patient presents for evaluation of headache, fever,cough and shortness of breath. reports just not feeling well. was diagnosed with covid 19 and is scheduled for monoclonal antibody infusion tomorrow. states he went for a walk today and may have overdone it. Related Data Home Medications Medication Instructions Recorded Confirmed albuterol sulfate 90 mcg/actuation 2 puff IH Q4H PRN #8.5 gm 02/11/20 09/22/21 aerosol inhaler lisinopril 10 mg tablet 10 mg PO DAILY #90 tab-cap 11/10/20 09/22/21 valacyclovir 1 gram tablet 1,000 mg PO Q12H PRN #30 tab 11/10/20 09/22/21 sertraline 50 mg tablet 50 mg PO DAILY #90 tab-cap 12/29/20 09/22/21 prednisone 20 mg tablet 40 mg PO DAILY #10 tab 06/02/21 06/02/21 acetaminophen 975 mg PO Q6H PRN 09/22/21 09/22/21 ibuprofen 600 mg PO Q8H PRN 09/22/21 09/22/21 pantoprazole 40 mg PO DAILY 09/22/21 09/22/21 pseudoephedrine HCl 60 mg PO BID PRN 09/22/21 09/22/21 Previous Rx's Medication Instructions Recorded albuterol sulfate 90 mcg/actuation 2 puff IH Q4H PRN #8.5 gm 02/11/20 aerosol inhaler lisinopril 10 mg tablet 10 mg PO DAILY #90 tab-cap 11/10/20 valacyclovir 1 gram tablet 1,000 mg PO Q12H PRN #30 tab 11/10/20 sertraline 50 mg tablet 50 mg PO DAILY #90 tab-cap 12/29/20 prednisone 20 mg tablet 40 mg PO DAILY #10 tab 06/02/21 Allergies Allergy/AdvReac Type Severity Reaction Status Date / Time No Known Allergies Allergy Verified 09/22/21 15:20 General Stated Complaint: RespSymp RONALD: 3 Review of Systems All systems reviewed & are unremarkable except as noted in HPI and below Constitutional Constitutional: Reports body ache(s), Reports fatigue, Reports fever(s), Reports lethargy and Reports malaise Eyes Eyes: Denies loss of vision Cardiovascular Cardiovascular: Denies chest pain and Reports dyspnea Respiratory Respiratory: Reports cough and Reports dyspnea Gastrointestinal Gastrointestinal: Denies nausea and Denies vomiting Musculoskeletal Musculoskeletal: Reports myalgias Neurologic Neurologic: Denies loss of vision Endocrine Endocrine: Reports fatigue PFSH Medical History (Updated 09/22/21 @ 16:54 by Guadalupe Stewart NP) Abdominal pain Anxiety Chewing tobacco use quit 1 year ago Depression Essential hypertension Family history of colon cancer in father Fatigue GERD (gastroesophageal reflux disease) Gout Gout involving toe of right foot Headache Hiatal hernia History of colon polyps Hyperlipidemia Obesity REX (obstructive sleep apnea) Psoriasis Tick bite Surgical History History of colonoscopy with polypectomy (~01/02/21) History of esophagogastroduodenoscopy (EGD) (~01/02/21) Family History Mother Hypertension Father Diabetes Hypertension Colon cancer PATERNAL AUNT Colon cancer Sister No problems noted. Son Hypertension Daughter No problems noted. Social History Smoking/Tobacco Use Status: Former Tobacco Use Quit Date: 08/14/19 Tobacco: How many years used: 20 Smokeless tobacco user: snuff Smoking risk assessment performed?: Yes Alcohol Intake: never Drug use: Never Substance use type: does not use Caregiver/Support person: No Household members: none Housing: house Do you need help understanding health information?: Rarely Pets and animals: Yes Pets and animals: cat(s) Sexually active: Yes Do you think of yourself as: straight/heterosexual Current gender identity: male What is your relationship status?: How often do you talk on the phone with friends or family?: three or more times per week How often do you get together with friends or relatives?: twice per week How often do you attend evangelical or gnosticism services?: decline to answer Do you belong to any clubs or organized social groups?: no Panel score (0-1 are the most socially isolated patients): 1 What type of physical activity do you participate in: walking Duration: 15-30 minutes/day Frequency: 3-4 times per week Xiomara/Tenriism: Oriental Orthodox Special xiomara needs: No Seatbelt use: never Helmet use: No 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 Do you feel safe at home: Yes Do you feel safe in your relationship?: Yes Exam Const General: cooperative, comfortable, no acute distress and ill appearing (mildly) acutely Nutritional Appearance: obese HENMT Head: normal to inspection Resp Effort & Inspection: normal respiratory effort Auscultation: clear to auscultation bilaterally Cardio Rate: regular rate Rhythm: regular rhythm GI Inspection: normal to inspection Palpation: soft Skin General skin exam: no rashes or lesions noted Neuro General: patient alert, patient awake and patient oriented x3 Extrem General: normal to inspection and full ROM Course Vital Signs Vital signs: Vital Signs Temperature 36.3 C L 09/22/21 15:17 Pulse 78 09/22/21 15:17 Respiratory Rate 16 09/22/21 15:17 Blood Pressure 120/68 09/22/21 15:17 Pulse Oximetry 97 09/22/21 15:17 Temperature 36.3 C L 09/22/21 15:17 Temperature Source Temporal Artery Scan 09/22/21 15:17 Pulse 78 09/22/21 15:17 Respiratory Rate 16 09/22/21 15:17 Respiratory Effort Non-Labored 09/22/21 16:16 Respiratory Depth Normal 09/22/21 16:16 Blood Pressure 120/68 09/22/21 15:17 Blood Pressure Position Sitting 09/22/21 15:17 Pulse Oximetry 97 09/22/21 15:17 Oxygen Delivery Method Room Air 09/22/21 15:17 Oxygen Flow Rate 0 09/22/21 15:17 Pain Level 0 09/22/21 15:17
--- NOTE | 2021-09-22 17:11 | DI.VRAD_ITS ---
PROCEDURE INFORMATION: Exam: XR Chest Exam date and time: 09/22/2021 3:46 PM Age: 51 years old Clinical indication: Cough and other: SOB; Patient HX: Covid + TECHNIQUE: Imaging protocol: XR of the chest. Views: 1 view. COMPARISON: CR XR CHEST 2V PA LATERAL 08/25/2020 2:05 PM FINDINGS: Lungs: No mass. No consolidation. Pleural spaces: Unremarkable. No pleural effusion. No pneumothorax. Heart/Mediastinum: Unremarkable cardiomediastinal silhouette. No cardiomegaly. Bones/joints: Unremarkable. IMPRESSION: No evidence for acute cardiopulmonary disease. Dictated and Authenticated by: Max Burnett MD. Ordering:YANE Carrera MD
== END 2021-09-22 17:00 | disposition home or self-care (01) ==
PROVIDERS: Emergency Provider Nurse Practitioner Acute Care; PCP Family Medicine
DX: U07.1 COVID-19 (principal); R06.02 Shortness of breath
CPT/HCPCS: 99283; 71045

== ENCOUNTER 2021-09-23 01:25 | Outpatient (CLI) | payer MEDICAID, SELFPAY ==
[2021-09-23] VITALS (8 sets, daily range): BP systolic 118–129; BP diastolic 74–85; PULSE 61–84; RESP 14–93; TEMP 36.2–36.6; O2SAT 93–96
[2021-09-23] MEDS: Normal Saline 500 ML 30 ML IV (10:25)
[2021-09-23] MEDS: Normal Saline Flush 10 ML SYR IVP (10:26)
== END 2021-09-23 01:26 | disposition home or self-care (01) ==
PROVIDERS: PCP Family Medicine; Visit Provider Family Medicine
DX: U07.1 COVID-19 (principal)
CPT/HCPCS: 96365

== ENCOUNTER 2021-11-15 14:50 | Emergency (ER) | payer MEDICAID, SELFPAY ==
--- NOTE | 2021-11-15 15:09 | NUR.NOTE ---
left the waiting room with out being seenNursing Note:
== END 2021-11-15 15:11 ==
PROVIDERS: Emergency Provider Physician Assistant; PCP Family Medicine
DX: Z53.21 Procedure and treatment not carried out due to patient leaving prior to being seen by health care provider (principal)

== ENCOUNTER 2022-01-05 14:49 | Outpatient (CLI) | payer MEDICAID, SELFPAY ==
--- NOTE | 2022-01-05 14:45 | RT.EKG_ITS ---
APPROVED REPORT Exam: Resting ECG Reason for Exam: Chest discomfort Patient Location: O HR:77 bpm ECG Measurements Heart Rate 77 AXIS WV 179 P 44 QRSd 92 QRS 72 QT 404 T 57 QTc 456 Conclusion Sinus rhythm...normal P axis, V-rate 60- 99 ST elev, probable normal early repol pattern...ST elevation, age<55 Normal Electrocardiogram
== END 2022-01-05 14:50 | disposition home or self-care (01) ==
LOC: DI.CM 14:49
PROVIDERS: PCP Family Medicine; Visit Provider Family Medicine
DX: R07.9 Chest pain, unspecified (principal)
CPT/HCPCS: 93010

== ENCOUNTER 2022-02-10 03:16 | Outpatient (CLI) | payer MEDICAID, SELFPAY ==
[2022-02-10 11:09] LABS: Abs Immature Grans 0.04 10^3/uL (0.0-0.06); Absolute Basophil Count 0.03 10^3/uL (0.0-0.2); Absolute Eosinophil Count 0.33 10^3/uL (0.0-0.7); Absolute Lymphocyte Count 2.89 10^3/uL (1.2-3.4); Absolute Monocyte Count 0.62 10^3/uL (0.1-0.8); Absolute Neutrophil Count 4.86 10^3/uL (1.2-6.7); Basophils % 0.3; Eosinophils % 3.8; HCT 44.7 % (40.0-50.0); Immature Grans % 0.5; MCH 30.9 pg (27.0-33.0); MCHC 33.6 % (32.0-36.0); Monocytes % 7.1; Neutrophils % 55.3; Nucleated RBC 0 %; Platelet Count 304 10^3/uL (130-400); RBC 4.86 10^6/uL (4.36-5.78); RDW 12.1 % (11.8-14.1); RDW-SD 41.4 fL; WBC 8.77 10^3/uL (4.4-10.8)
[2022-02-10 12:07] LABS: ALT 167 U/L (16-63); AST 36 U/L (15-37); Alkaline Phosphatase 115 U/L (46-116); Anion Gap 8.3 mmol/L (3-11); BUN 18 mg/dL (7-18); Bilirubin, Total 0.3 mg/dL (0.2-1.0); CO2 28.7 mmol/L (21.0-32.0); CREATININE 1.1 mg/dL (0.70-1.30); Calcium 9.5 mg/dL (8.5-10.1); Chloride 105 mmol/L (98-107); Glucose 95 mg/dL (74-106); Lipase 102 U/L (73-393); Potassium 4.5 mmol/L (3.5-5.1); Sodium 142 mmol/L (136-145); TSH (W/Ref FT4) 1.94 uIU/mL (0.36-3.74); Total Protein 7.4 g/dL (6.4-8.2); Uric Acid 6.9 mg/dL (3.5-7.2)
[2022-02-11 09:44] LABS: Hepatitis C Ab w Rflx HCV PCR Negative (Negative)
[2022-02-11 15:07] LABS: Calculated LDL 98 mg/dL (<100); Cholesterol 174 mg/dL (<200); HDL Cholesterol 36 mg/dL (40-60); Triglyceride 204 mg/dL (<150)
== END 2022-02-10 03:17 | disposition home or self-care (01) ==
LOC: LBO 03:16
PROVIDERS: PCP Family Medicine; Visit Provider Family Medicine
DX: E78.5 Hyperlipidemia, unspecified (principal); R53.83 Other fatigue; M10.9 Gout, unspecified; R10.9 Unspecified abdominal pain; E03.9 Hypothyroidism, unspecified; Z11.59 Encounter for screening for other viral diseases
CPT/HCPCS: 36415; 80053; 80061; 83690; 86803; 84443; 84550; 85025

== ENCOUNTER → 2022-02-24 01:44 | Outpatient (CLI) | payer MEDICAID, SELFPAY ==
[2022-02-24] MEDS: Omnipaque 350 MG/ML 50 ML BTL PO (08:31)
[2022-02-24] MEDS: Breeza Beverage 473 ML BTL PO ×2 (08:32)
[2022-02-24] MEDS: Omnipaque 350 MG/ML 100 ML BTL IJ (09:52)
--- NOTE | 2022-02-24 10:07 | DI.CT_ITS ---
Exam(s) CT ABDOMEN PELVIS W EXAM: CT ABDOMEN PELVIS W CLINICAL HISTORY: nausea/fatigue/upper abd pain,R10.9. TECHNIQUE: Imaging Protocol: Axial computed tomography images with coronal and sagittal reformatted images were created and reviewed CONTRAST MATERIAL: Intravenous: Omnipaque 350 Contrast volume:100 ml Oral: yes COMPARISON: CT CT CHEST PE CTA from 08/25/2020 FINDINGS: ABDOMEN: Lung Bases: Normal where visualized. Liver: Fatty infiltration. Mildly enlarged.. No measurable mass. Gallbladder and biliary tract: No radiodense calculus or dilation. Pancreas: Normal density, no abnormal calcifications or inflammatory process. Spleen: Normal. Kidneys: Normal size, contour and axis. Tiny nonobstructing stone mid right kidney. No obstructive uropathy. No masses seen. Cyst lower pole left kidney. Adrenal glands: No masses seen. Abdominal Aorta: Abdominal portion non-dilated. Soft tissues: No evidence of hernia. Symmetric musculature. No abdominal wall hematoma or fluid col lection.. PELVIS: Bladder: No gross wall thickening. No calculi.No focal mass. Bowel: No obstruction or bowel wall thickening. Appendix normal. Peritoneal cavity: No ascites, collection or mesenteric inflammatory response. Bones: Degenerative disc changes and facet degenerative changes greatest at L4-5. Reproductive organs: Within normal limits. Lymph nodes: Unremarkable. Impression: Fatty liver, otherwise unremarkable CT scan of the abdomen and pelvis. RADIATION DOSE DELIVERED: 1,374.4mGy.cm Total DLP DATA REPOSITORY: All CT scans at this facility are submitted to the National Radiology Data Registry (NRDR) Dose Index Registry (DIR) with the [employer] ([employer]). RADIATION OPTIMIZATION: All CT scans at this facility use at least one of these dose optimization te chniques: automated exposure control; mA and/or kV adjustment per patient size (includes targeted exa ms where dose is matched to clinical indication); or iterative reconstruction.
== END ==
PROVIDERS: PCP Family Medicine; Visit Provider Family Medicine
DX: R10.31 Right lower quadrant pain (principal); R53.83 Other fatigue; R11.0 Nausea; K76.0 Fatty (change of) liver, not elsewhere classified; N28.1 Cyst of kidney, acquired; N20.0 Calculus of kidney
CPT/HCPCS: 74177; 82565; J3490; Q9967

== ENCOUNTER 2023-06-21 10:23 | Outpatient (CLI) | payer MEDICAID, SELFPAY ==
[2023-06-21 12:12] LABS: HCT 44.7 % (40.0-50.0); HGB 14.9 g/dL (13.5-17.5); MCH 30.9 pg (27.0-33.0); MCHC 33.3 % (32.0-36.0); MCV 93 fL (80-95); MPV 8.5 fL (8.0-11.0); Platelet Count 318 10^3/uL (130-400); RBC 4.82 10^6/uL (4.36-5.78); RDW 12.4 % (11.8-14.1); RDW-SD 42.4 fL; WBC 7.98 10^3/uL (4.4-10.8)
[2023-06-21 12:33] LABS: Hemoglobin A1C 5.5 % (<5.7)
[2023-06-21 12:34] LABS: ALT 81 U/L (16-63); AST 36 U/L (15-37); Albumin 3.8 g/dL (3.4-5.0); Alkaline Phosphatase 103 U/L (46-116); Anion Gap 7.6 mmol/L (3-11); BUN 17 mg/dL (7-18); Bilirubin, Total 0.4 mg/dL (0.2-1.0); CO2 29.4 mmol/L (21.0-32.0); CREATININE 1.1 mg/dL (0.70-1.30); Calcium 9.8 mg/dL (8.5-10.1); Calculated LDL 148 mg/dL (<100); Chloride 103 mmol/L (98-107); Cholesterol 229 mg/dL (<200); Estimated GFR 81.28 (mL/min/1.73m2); Glucose 99 mg/dL (74-106); HDL Cholesterol 50 mg/dL (40-60); Potassium 4.2 mmol/L (3.5-5.1); Sodium 140 mmol/L (136-145); Total Protein 7.6 g/dL (6.4-8.2); Triglyceride 156 mg/dL (<150)
[2023-06-21 18:20] LABS: PSA, Screening 1.2 ng/mL (<=3.5)
== END 2023-06-21 10:24 | disposition home or self-care (01) ==
LOC: LOS 10:23
PROVIDERS: PCP Family Medicine; Referring Provider Family Medicine; Visit Provider Family Medicine
DX: Z12.5 Encounter for screening for malignant neoplasm of prostate (principal); R73.9 Hyperglycemia, unspecified; R10.9 Unspecified abdominal pain; E78.5 Hyperlipidemia, unspecified; R53.83 Other fatigue
CPT/HCPCS: 36415; 80053; 80061; 84153; 85027; 83036

== ENCOUNTER → 2023-06-24 01:19 | Outpatient (CLI) | payer MEDICAID, SELFPAY ==
--- NOTE | 2023-06-24 07:30 | DI.RAD_ITS ---
Exam(s) XR CERVICAL SPINE COMP 4-5V EXAM: XR CERVICAL SPINE COMP 4-5V CLINICAL HISTORY: chronic neck pain,M54.2. TECHNIQUE: 2D digital imaging was performed. COMPARISON: No exams were available for comparison FINDINGS: BONES: No fracture or destructive lesion. Vertebral bodies are unremarkable. Facet degenerative wes nges greatest at C 3 4 which causes right-sided neural foraminal encroachment. Right-sided neural fo raminal narrowing is also seen at C6-7. Left neural foraminal narrowing present at C3-4, C5-6 and C6 -7. DISKS: Mild narrowing of the C3-4 and C5-6 disc spaces. Endplate osteophytes. The remaining interve rtebral disc spaces are maintained. ALIGNMENT: Cervical spinal alignment is within normal limits. The odontoid and atlantoaxial articulat ions are normal. SOFT TISSUE: Normal. The lung apices are clear. IMPRESSION: Degenerative changes causing bilateral neural foraminal narrowing. DATA REPOSITORY: RADIATION DOSE DELIVERED:
== END ==
PROVIDERS: PCP Family Medicine; Visit Provider Family Medicine
DX: M99.63 Osseous and subluxation stenosis of intervertebral foramina of lumbar region (principal)
CPT/HCPCS: 72050

== ENCOUNTER 2025-01-24 02:22 | Outpatient (CLI) | payer SELFPAY ==
[2025-01-24 09:05] LABS: Abs Immature Grans 0.03 10^3/uL (0.0-0.06); Absolute Basophil Count 0.03 10^3/uL (0.0-0.2); Absolute Eosinophil Count 0.39 10^3/uL (0.0-0.7); Absolute Lymphocyte Count 2.05 10^3/uL (1.2-3.4); Absolute Monocyte Count 0.63 10^3/uL (0.1-0.8); Absolute Neutrophil Count 4.33 10^3/uL (1.2-6.7); Basophils % 0.4 %; Eosinophils % 5.2 %; HCT 41.3 % (40.0-50.0); Immature Grans % 0.4 %; Lymphocytes % 27.5 %; MCH 31.1 pg (27.0-33.0); MCHC 33.9 % (32.0-36.0); MCV 92 fL (80-95); MPV 8.1 fL (8.0-11.0); Monocytes % 8.4 %; Neutrophils % 58.1 %; Platelet Count 274 10^3/uL (130-400); RDW 12.3 % (11.8-14.1); RDW-SD 41.4 fL; WBC 7.46 10^3/uL (4.4-10.8)
[2025-01-24 09:35] LABS: ALT 52 U/L (16-63); AST 33 U/L (15-37); Albumin 3.6 g/dL (3.4-5.0); Alkaline Phosphatase 114 U/L (46-116); Anion Gap 8.6 mmol/L (3-11); BUN 21 mg/dL (7-18); Bilirubin, Total 0.2 mg/dL (0.2-1.0); CO2 27.4 mmol/L (21.0-32.0); CREATININE 1.1 mg/dL (0.70-1.30); Calcium 9.3 mg/dL (8.5-10.1); Calculated LDL 151 mg/dL (<100); Chloride 107 mmol/L (98-107); Cholesterol 229 mg/dL (<200); Estimated GFR 80.77 (mL/min/1.73m2); Glucose 107 mg/dL (74-106); HDL Cholesterol 49 mg/dL (>or=40); Magnesium 1.9 mg/dL; Potassium 4.4 mmol/L (3.5-5.1); Sodium 143 mmol/L (136-145); Total Protein 7.4 g/dL (6.4-8.2); Triglyceride 147 mg/dL (<150)
[2025-01-24 17:56] LABS: PSA, Screening 0.9 ng/mL (<=3.5)
== END 2025-01-24 02:23 | disposition home or self-care (01) ==
PROVIDERS: PCP Family Medicine; Visit Provider Family Medicine
DX: E78.5 Hyperlipidemia, unspecified (principal); E83.42 Hypomagnesemia; R10.9 Unspecified abdominal pain; D64.9 Anemia, unspecified; Z12.5 Encounter for screening for malignant neoplasm of prostate
CPT/HCPCS: 36415; 80053; 80061; 84153; 83735; 85025